=== PATIENT | female | born 1950 | race Caucasian/White ===

== ENCOUNTER 2017-12-03 17:35 | Inpatient (IN) | payer OTHER ==
[2017-12-03] MEDS: NITROGLYCERIN 2% 1 GM OINT PKT TD (18:28)
[2017-12-03] MEDS: ASPIRIN 81 MG TAB PO (18:28)
[2017-12-03] MEDS: NITROGLYCERIN (SL) 0.4 MG TAB SL (18:29)
[2017-12-03] MEDS: FUROSEMIDE 40 MG INJ IV (18:29)
[2017-12-03 18:43] LABS: ADD MAN DIFF? NO
[2017-12-03 18:46] LABS: WHITE BLOOD COUNT 5.5 10^3/ul (4.8-10.8)
[2017-12-03 18:46] LABS: BASOPHILS % 0.4 % (0.0-2.0); EOSINOPHILS # 0.2 10^3/ul (0.0-0.5); EOSINOPHILS % 4.2 % (0.0-7.0); HEMATOCRIT 22.4 % (37.0-47.0); HEMOGLOBIN 7.1 g/dl (12.0-16.0); LYMPHOCYTES # 1.2 10^3/ul (0.8-2.9); LYMPHOCYTES % 21.4 % (15.0-51.0); MEAN CORPUSCULAR HGB CONC 31.7 g/dl (32.0-37.0); MEAN CORPUSCULAR VOLUME 88.2 fl (82.0-101.0); MEAN PLATELET VOLUME 9.6 fl (7.4-10.4); MONOCYTE # 0.4 10^3/ul (0.3-0.9); MONOCYTES % 7.9 % (0.0-11.0); NEUTROPHIL # 3.6 10^3/ul (1.6-7.5); NEUTROPHILS % 65.4 % (39.0-77.0); PLATELET COUNT 315 10^3/UL (140-415); RED BLOOD COUNT 2.54 10^6/ul (4.20-5.40); RED CELL DISTRIBUTION WIDTH 15.1 % (11.5-14.5)
[2017-12-03 19:05] LABS: ANION GAP 16 (8-16); BLOOD UREA NITROGEN 36 mg/dl (7-20); CALCIUM 9.3 mg/dl (8.4-10.2); CARBON DIOXIDE 21 mmol/L (21-31); CHLORIDE 110 mmol/L (97-110); CREATININE 1.73 mg/dl (0.44-1.00); GLUCOSE 154 mg/dl (70-220); SODIUM 142 mmol/L (135-144)
[2017-12-03 19:08] LABS: POTASSIUM 5.2 mmol/L (3.5-5.1)
[2017-12-03] MEDS: SOD CHLORIDE 0.9% 250 ML IV (19:14)
[2017-12-03 19:22] LABS: TROPONIN-I < 0.012 ng/ml (0.00-0.12)
[2017-12-03] MEDS ORDERED: ONDANSETRON 4 MG INJ IV (20:00)
[2017-12-03 20:50] LABS: D-DIMER 3619.37 ng/ml (<460)
[2017-12-03 21:09] LABS: IMMEDIATE SPIN CROSSMATCH 1 2
[2017-12-03] MEDS ORDERED: GLUCAGON 1 MG INJ IM (21:30)
[2017-12-03] MEDS ORDERED: GLUCOSE GEL 15 GRAM TUBE PO ×2 (21:30)
[2017-12-03] MEDS ORDERED: NITROGLYCERIN (SL) 0.4 MG TAB SL (21:30)
[2017-12-03] MEDS ORDERED: DEXTROSE 50% 50 ML SYRINGE IV ×2 (21:30)
[2017-12-03] MEDS ORDERED: GLUCOSE GEL 15 GRAM TUBE BUCCAL (21:30)
[2017-12-03] MEDS: INSULIN ASPART [NOVOLOG] 3 ML PEN SC (21:30)
[2017-12-03] MEDS ORDERED: SOD CHLORIDE 0.9% 500 ML IV (21:30)
[2017-12-03 22:26] LABS: IRON 43 ug/dl (35-150)
[2017-12-03 22:35] LABS: % IRON SATURATION 19 % SAT (22-52); TOTAL IRON BINDING CAPACITY 222 ug/dl (241-421)
[2017-12-03 22:36] LABS: B-TYPE NATRIURETIC PEPTIDE 582 PG/ML (0-125)
[2017-12-04] MEDS: ACETAMINOPHEN 325 MG TAB PO ×2 (00:41→15:46)
[2017-12-04 01:19] LABS: CREATINE KINASE 54 IU/L (23-200)
[2017-12-04 01:32] LABS: CK INDEX 1.1
[2017-12-04 01:33] LABS: TROPONIN-I < 0.012 ng/ml (0.00-0.12)
[2017-12-04] MEDS: ACCU-CHEK XX (02:00)
[2017-12-04] MEDS: FUROSEMIDE 40 MG INJ IV (05:40)
[2017-12-04] MEDS: INSULIN ASPART [NOVOLOG] 3 ML PEN SC ×5 (08:00→21:00)
[2017-12-04 08:31] LABS: ADD MAN DIFF? NO
[2017-12-04 08:42] LABS: WHITE BLOOD COUNT 4.6 10^3/ul (4.8-10.8)
[2017-12-04 08:43] LABS: BASOPHILS % 0.4 % (0.0-2.0); EOSINOPHILS # 0.2 10^3/ul (0.0-0.5); EOSINOPHILS % 4.8 % (0.0-7.0); HEMATOCRIT 26.8 % (37.0-47.0); HEMOGLOBIN 8.8 g/dl (12.0-16.0); LYMPHOCYTES % 21.5 % (15.0-51.0); MEAN CORPUSCULAR HEMOGLOBIN 28.6 pg (29.0-33.0); MEAN CORPUSCULAR HGB CONC 32.8 g/dl (32.0-37.0); MEAN PLATELET VOLUME 9.7 fl (7.4-10.4); MONOCYTE # 0.4 10^3/ul (0.3-0.9); MONOCYTES % 8.6 % (0.0-11.0); NEUTROPHIL # 2.9 10^3/ul (1.6-7.5); NEUTROPHILS % 63.8 % (39.0-77.0); PLATELET COUNT 326 10^3/UL (140-415); RED BLOOD COUNT 3.08 10^6/ul (4.20-5.40); RED CELL DISTRIBUTION WIDTH 14.8 % (11.5-14.5)
[2017-12-04 08:50] LABS: CREATINE KINASE 43 IU/L (23-200)
[2017-12-04 08:54] LABS: ALANINE AMINOTRANSFERASE 22 IU/L (13-69); ALBUMIN 3.7 g/dl (3.3-4.9); ALBUMIN/GLOBULIN RATIO 1.02; ALKALINE PHOSPHATASE 173 IU/L (42-121); ANION GAP 16 (8-16); ASPARTATE AMINO TRANSFERASE 33 IU/L (15-46); BILIRUBIN,INDIRECT 0.1 mg/dl (0-1.1); BILIRUBIN,TOTAL 0.1 mg/dl (0.2-1.3); BLOOD UREA NITROGEN 38 mg/dl (7-20); CALCIUM 9.5 mg/dl (8.4-10.2); CARBON DIOXIDE 21 mmol/L (21-31); CHLORIDE 111 mmol/L (97-110); CHOL/HDL RATIO 1.9 RATIO; CHOLESTEROL 151 mg/dl (100-200); CREATININE 1.89 mg/dl (0.44-1.00); GLUCOSE 136 mg/dl (70-220); HDL CHOLESTEROL 77 mg/dl (35-98); LDL CHOLESTEROL,CALCULATED 60 mg/dl; POTASSIUM 5.2 mmol/L (3.5-5.1); SODIUM 143 mmol/L (135-144); TOTAL PROTEIN 7.3 g/dl (6.1-8.1); TRIGLYCERIDES 72 mg/dl (0-149)
[2017-12-04] MEDS: FERROUS SULFATE (EC) 325 MG TAB PO (09:01)
[2017-12-04 09:02] LABS: CK INDEX 0.8; CK-MB 0.35 ng/ml (0.0-2.4)
[2017-12-04 09:05] LABS: HEMOGLOBIN A1C 6.9 % (0-5.9)
[2017-12-04 09:06] LABS: TROPONIN-I < 0.012 ng/ml (0.00-0.12)
[2017-12-04 09:53] LABS: CREATINE KINASE 46 IU/L (23-200)
[2017-12-04 10:05] LABS: CK INDEX 0.7; CK-MB 0.33 ng/ml (0.0-2.4)
[2017-12-04 10:10] LABS: TROPONIN-I < 0.012 ng/ml (0.00-0.12)
[2017-12-04] MEDS: AMLODIPINE 5 MG TAB PO (11:00)
[2017-12-04] MEDS ORDERED: IODIXANOL LOCM 100 ML BTL (12:28)
[2017-12-04] MEDS ORDERED: LIDOCAINE 1% (MDV) 20 ML INJ (12:28)
[2017-12-04] MEDS ORDERED: IODIXANOL LOCM 50 ML BTL (12:28)
[2017-12-04] MEDS ORDERED: HEPARIN 1000 UNITS/NS (A-LINE) 1,000 ML (12:28)
[2017-12-04 14:44] LABS: CREATINE KINASE 44 IU/L (23-200)
[2017-12-04 14:56] LABS: CK INDEX 0.6; CK-MB 0.28 ng/ml (0.0-2.4)
[2017-12-04 15:08] LABS: TROPONIN-I < 0.012 ng/ml (0.00-0.12)
[2017-12-04 15:50] LABS: ADD UMIC YES; UR ASCORBIC ACID NEGATIVE (NEGATIVE); UR BILIRUBIN (Dip) NEGATIVE (NEGATIVE); UR BLOOD (Dip) NEGATIVE (NEGATIVE); UR CLARITY CLEAR (CLEAR); UR COLOR STRAW (YELLOW); UR GLUCOSE (Dip) NEGATIVE (NEGATIVE); UR KETONES (Dip) NEGATIVE (NEGATIVE); UR LEUKOCYTE ESTERASE (Dip) TRACE Leu/ul (NEGATIVE); UR NITRITE (Dip) NEGATIVE (NEGATIVE); UR RBC 1 /HPF (0-5); UR SPECIFIC GRAVITY (Dip) 1.009 (1.003-1.030); UR TOTAL PROTEIN (Dip) NEGATIVE (NEGATIVE); UR UROBILINOGEN (Dip) NEGATIVE (NEGATIVE); UR WBC 3 /HPF (0-5)
[2017-12-04] MEDS: PANTOPRAZOLE (EC) 40 MG TAB PO (17:38)
[2017-12-04] MEDS: HEPARIN 5,000 UNIT/0.5 ML VIAL SC (21:35)
[2017-12-05] MEDS: ACCU-CHEK XX (02:00)
[2017-12-05] MEDS: PANTOPRAZOLE (EC) 40 MG TAB PO ×2 (05:51→17:17)
[2017-12-05] MEDS: HEPARIN 5,000 UNIT/0.5 ML VIAL SC ×2 (05:59→13:41)
[2017-12-05] MEDS: ACETAMINOPHEN 325 MG TAB PO ×2 (07:45→15:26)
[2017-12-05] MEDS: FERROUS SULFATE (EC) 325 MG TAB PO (08:03)
[2017-12-05] MEDS: AMLODIPINE 5 MG TAB PO (08:05)
[2017-12-05] MEDS: INSULIN ASPART [NOVOLOG] 3 ML PEN SC ×4 (08:34→21:52)
[2017-12-05 11:54] LABS: ADD MAN DIFF? NO
[2017-12-05 12:05] LABS: BASOPHILS % 0.4 % (0.0-2.0); EOSINOPHILS # 0.2 10^3/ul (0.0-0.5); EOSINOPHILS % 4.1 % (0.0-7.0); HEMATOCRIT 27.5 % (37.0-47.0); HEMOGLOBIN 9.2 g/dl (12.0-16.0); LYMPHOCYTES # 1.1 10^3/ul (0.8-2.9); LYMPHOCYTES % 21.1 % (15.0-51.0); MEAN CORPUSCULAR HEMOGLOBIN 29.2 pg (29.0-33.0); MEAN CORPUSCULAR HGB CONC 33.5 g/dl (32.0-37.0); MEAN CORPUSCULAR VOLUME 87.3 fl (82.0-101.0); MEAN PLATELET VOLUME 9.6 fl (7.4-10.4); MONOCYTE # 0.4 10^3/ul (0.3-0.9); MONOCYTES % 8.1 % (0.0-11.0); NEUTROPHIL # 3.6 10^3/ul (1.6-7.5); NEUTROPHILS % 65.9 % (39.0-77.0); PLATELET COUNT 308 10^3/UL (140-415); RED BLOOD COUNT 3.15 10^6/ul (4.20-5.40); RED CELL DISTRIBUTION WIDTH 14.9 % (11.5-14.5)
[2017-12-05 12:05] LABS: WHITE BLOOD COUNT 5.4 10^3/ul (4.8-10.8)
[2017-12-05 12:16] LABS: INR 0.97
[2017-12-05 12:18] LABS: ALANINE AMINOTRANSFERASE 21 IU/L (13-69); ALBUMIN/GLOBULIN RATIO 1.21; ALKALINE PHOSPHATASE 177 IU/L (42-121); ANION GAP 20 (8-16); ASPARTATE AMINO TRANSFERASE 31 IU/L (15-46); BLOOD UREA NITROGEN 45 mg/dl (7-20); CALCIUM 9.4 mg/dl (8.4-10.2); CARBON DIOXIDE 20 mmol/L (21-31); CHLORIDE 108 mmol/L (97-110); CREATININE 2.01 mg/dl (0.44-1.00); GLUCOSE 185 mg/dl (70-220); POTASSIUM 4.9 mmol/L (3.5-5.1); SODIUM 143 mmol/L (135-144); TOTAL PROTEIN 7.3 g/dl (6.1-8.1)
[2017-12-05] MEDS: FUROSEMIDE 20 MG INJ IV (12:22)
[2017-12-05] MEDS ORDERED: HEPARIN 1000 UNITS/ML 10 ML INJ IV ×2 (16:30)
[2017-12-05 17:36] LABS: ADD MAN DIFF? NO
[2017-12-05 17:38] LABS: WHITE BLOOD COUNT 4.8 10^3/ul (4.8-10.8)
[2017-12-05 17:38] LABS: BASOPHILS % 0.4 % (0.0-2.0); EOSINOPHILS # 0.2 10^3/ul (0.0-0.5); EOSINOPHILS % 4.8 % (0.0-7.0); HEMATOCRIT 27.6 % (37.0-47.0); HEMOGLOBIN 9.2 g/dl (12.0-16.0); LYMPHOCYTES # 1.2 10^3/ul (0.8-2.9); MEAN CORPUSCULAR HEMOGLOBIN 29.1 pg (29.0-33.0); MEAN CORPUSCULAR HGB CONC 33.3 g/dl (32.0-37.0); MEAN CORPUSCULAR VOLUME 87.3 fl (82.0-101.0); MEAN PLATELET VOLUME 9.2 fl (7.4-10.4); MONOCYTE # 0.3 10^3/ul (0.3-0.9); MONOCYTES % 6.3 % (0.0-11.0); NEUTROPHILS % 63.3 % (39.0-77.0); PLATELET COUNT 327 10^3/UL (140-415); RED BLOOD COUNT 3.16 10^6/ul (4.20-5.40); RED CELL DISTRIBUTION WIDTH 14.7 % (11.5-14.5)
[2017-12-05] MEDS: ONDANSETRON 4 MG INJ IV (18:02)
[2017-12-05] MEDS: HEPARIN 1000 UNITS/ML 10 ML INJ IV (18:03)
[2017-12-05 18:08] LABS: INR 0.95; PROTIME 12.8 Sec (11.9-14.9)
[2017-12-05 18:09] LABS: PARTIAL THROMBOPLASTIN TIME 40.1 Sec (25.0-35.0)
[2017-12-05] MEDS: HEPARIN 25000 UNITS/250 ML 250 ML IV (18:09)
[2017-12-05] MEDS: INSULIN GLARGINE [LANtus] 3 ML PEN SC (21:51)
[2017-12-05 22:18] LABS: ADD MAN DIFF? NO
[2017-12-05 22:19] LABS: WHITE BLOOD COUNT 5.2 10^3/ul (4.8-10.8)
[2017-12-05 22:19] LABS: BASOPHILS % 0.4 % (0.0-2.0); EOSINOPHILS # 0.2 10^3/ul (0.0-0.5); HEMATOCRIT 26.9 % (37.0-47.0); HEMOGLOBIN 9.1 g/dl (12.0-16.0); LYMPHOCYTES # 1.2 10^3/ul (0.8-2.9); LYMPHOCYTES % 22.9 % (15.0-51.0); MEAN CORPUSCULAR HEMOGLOBIN 29.3 pg (29.0-33.0); MEAN CORPUSCULAR HGB CONC 33.8 g/dl (32.0-37.0); MEAN CORPUSCULAR VOLUME 86.5 fl (82.0-101.0); MEAN PLATELET VOLUME 9.2 fl (7.4-10.4); MONOCYTE # 0.4 10^3/ul (0.3-0.9); MONOCYTES % 8.3 % (0.0-11.0); NEUTROPHIL # 3.3 10^3/ul (1.6-7.5); PLATELET COUNT 304 10^3/UL (140-415); RED BLOOD COUNT 3.11 10^6/ul (4.20-5.40); RED CELL DISTRIBUTION WIDTH 14.6 % (11.5-14.5)
[2017-12-06] MEDS: ACETAMINOPHEN 325 MG TAB PO ×2 (00:53→23:51)
[2017-12-06] MEDS: HEPARIN 1000 UNITS/ML 10 ML INJ IV ×2 (02:04→16:44)
[2017-12-06] MEDS: HEPARIN 25000 UNITS/250 ML 250 ML IV ×3 (02:08→16:46)
[2017-12-06] MEDS: ACCU-CHEK XX (02:14)
[2017-12-06] MEDS: PANTOPRAZOLE (EC) 40 MG TAB PO ×2 (05:52→17:15)
[2017-12-06 07:38] LABS: ADD MAN DIFF? NO
[2017-12-06 07:43] LABS: WHITE BLOOD COUNT 4.4 10^3/ul (4.8-10.8)
[2017-12-06 07:43] LABS: BASOPHILS % 0.7 % (0.0-2.0); EOSINOPHILS # 0.3 10^3/ul (0.0-0.5); EOSINOPHILS % 5.7 % (0.0-7.0); HEMATOCRIT 26.1 % (37.0-47.0); HEMOGLOBIN 8.8 g/dl (12.0-16.0); LYMPHOCYTES # 1.2 10^3/ul (0.8-2.9); LYMPHOCYTES % 26.6 % (15.0-51.0); MEAN CORPUSCULAR HEMOGLOBIN 29.2 pg (29.0-33.0); MEAN CORPUSCULAR HGB CONC 33.7 g/dl (32.0-37.0); MEAN CORPUSCULAR VOLUME 86.7 fl (82.0-101.0); MEAN PLATELET VOLUME 9.7 fl (7.4-10.4); MONOCYTE # 0.5 10^3/ul (0.3-0.9); MONOCYTES % 10.2 % (0.0-11.0); NEUTROPHIL # 2.5 10^3/ul (1.6-7.5); NEUTROPHILS % 56.1 % (39.0-77.0); PLATELET COUNT 291 10^3/UL (140-415); RED BLOOD COUNT 3.01 10^6/ul (4.20-5.40)
[2017-12-06] MEDS: INSULIN ASPART [NOVOLOG] 3 ML PEN SC ×4 (08:00→21:19)
[2017-12-06] MEDS: FERROUS SULFATE (EC) 325 MG TAB PO (08:11)
[2017-12-06] MEDS: AMLODIPINE 5 MG TAB PO (08:12)
[2017-12-06] MEDS: FUROSEMIDE 20 MG INJ IV (08:12)
[2017-12-06 08:13] LABS: ANION GAP 16 (8-16); BLOOD UREA NITROGEN 46 mg/dl (7-20); CALCIUM 9.4 mg/dl (8.4-10.2); CARBON DIOXIDE 21 mmol/L (21-31); CHLORIDE 111 mmol/L (97-110); CREATININE 1.98 mg/dl (0.44-1.00); GLUCOSE 116 mg/dl (70-220); POTASSIUM 4.7 mmol/L (3.5-5.1); SODIUM 143 mmol/L (135-144)
[2017-12-06 08:13] LABS: PARTIAL THROMBOPLASTIN TIME 70.6 Sec (25.0-35.0)
[2017-12-06] MEDS ORDERED: INFLUENZA VIRUS VACCINE 0.5 ML (DISPENSING) IM* (09:00)
[2017-12-06 14:07] LABS: PARTIAL THROMBOPLASTIN TIME 36.5 Sec (25.0-35.0)
[2017-12-06 16:29] LABS: PARTIAL THROMBOPLASTIN TIME 39.8 Sec (25.0-35.0)
[2017-12-06] MEDS: INSULIN GLARGINE [LANtus] 3 ML PEN SC (21:20)
[2017-12-06 23:07] LABS: PARTIAL THROMBOPLASTIN TIME 102.3 Sec (25.0-35.0)
[2017-12-07 00:34] LABS: PARTIAL THROMBOPLASTIN TIME 72.6 Sec (25.0-35.0)
[2017-12-07] MEDS: ACCU-CHEK XX (02:11)
[2017-12-07] MEDS: PANTOPRAZOLE (EC) 40 MG TAB PO ×2 (05:45→17:07)
[2017-12-07 07:58] LABS: ADD MAN DIFF? NO
[2017-12-07] MEDS: INSULIN ASPART [NOVOLOG] 3 ML PEN SC ×4 (08:00→20:54)
[2017-12-07 08:02] LABS: BASOPHILS % 0.6 % (0.0-2.0); EOSINOPHILS # 0.3 10^3/ul (0.0-0.5); EOSINOPHILS % 5.5 % (0.0-7.0); HEMATOCRIT 25.6 % (37.0-47.0); HEMOGLOBIN 8.5 g/dl (12.0-16.0); LYMPHOCYTES # 1.1 10^3/ul (0.8-2.9); LYMPHOCYTES % 23.2 % (15.0-51.0); MEAN CORPUSCULAR HEMOGLOBIN 29.1 pg (29.0-33.0); MEAN CORPUSCULAR HGB CONC 33.2 g/dl (32.0-37.0); MEAN CORPUSCULAR VOLUME 87.7 fl (82.0-101.0); MEAN PLATELET VOLUME 9.3 fl (7.4-10.4); MONOCYTE # 0.4 10^3/ul (0.3-0.9); MONOCYTES % 8.1 % (0.0-11.0); NEUTROPHIL # 3.1 10^3/ul (1.6-7.5); NEUTROPHILS % 62.2 % (39.0-77.0); PLATELET COUNT 314 10^3/UL (140-415); RED BLOOD COUNT 2.92 10^6/ul (4.20-5.40); RED CELL DISTRIBUTION WIDTH 14.7 % (11.5-14.5)
[2017-12-07 08:02] LABS: WHITE BLOOD COUNT 4.9 10^3/ul (4.8-10.8)
[2017-12-07 08:23] LABS: PARTIAL THROMBOPLASTIN TIME 49.4 Sec (25.0-35.0)
[2017-12-07 08:25] LABS: ANION GAP 19 (8-16); BLOOD UREA NITROGEN 43 mg/dl (7-20); CALCIUM 9.4 mg/dl (8.4-10.2); CARBON DIOXIDE 21 mmol/L (21-31); CHLORIDE 109 mmol/L (97-110); CREATININE 2.15 mg/dl (0.44-1.00); GLUCOSE 97 mg/dl (70-220); MAGNESIUM 1.8 mg/dl (1.7-2.5); PHOSPHORUS 5.4 mg/dl (2.5-4.9); POTASSIUM 4.6 mmol/L (3.5-5.1); SODIUM 144 mmol/L (135-144)
[2017-12-07] MEDS: FERROUS SULFATE (EC) 325 MG TAB PO (08:38)
[2017-12-07] MEDS: AMLODIPINE 5 MG TAB PO (08:39)
[2017-12-07 08:54] LABS: CARCINOEMBRYONIC ANTIGEN 19.5 ng/ml (0.0-5.0)
[2017-12-07] MEDS: HEPARIN 1000 UNITS/ML 10 ML INJ IV (09:40)
[2017-12-07] MEDS: HEPARIN 25000 UNITS/250 ML 250 ML IV (09:42)
[2017-12-07] MEDS: hydrALAzine 20 MG INJ IV (16:30)
[2017-12-07] MEDS: BISACODYL (EC) 5 MG TAB PO (17:50)
[2017-12-07] MEDS: MAGNESIUM CITRATE 300 ML BTL PO (18:44)
[2017-12-07] MEDS: POLYETHYLENE GLYCOL 3350 119 GM POWDER PO (18:45)
[2017-12-07 19:17] LABS: PARTIAL THROMBOPLASTIN TIME 68.1 Sec (25.0-35.0)
[2017-12-07] MEDS: ONDANSETRON 4 MG INJ IV (19:18)
[2017-12-07] MEDS: ACETAMINOPHEN 325 MG TAB PO (19:20)
[2017-12-07] MEDS: INSULIN GLARGINE [LANtus] 3 ML PEN SC (20:50)
[2017-12-08] MEDS: ACCU-CHEK XX (01:38)
[2017-12-08] MEDS: ACETAMINOPHEN 325 MG TAB PO ×2 (01:46→21:00)
[2017-12-08 04:32] LABS: PROTEIN, TOTAL 6.4 g/dL (6.1-8.1)
[2017-12-08] MEDS: PANTOPRAZOLE (EC) 40 MG TAB PO ×2 (05:17→08:14)
[2017-12-08] MEDS: POLYETHYLENE GLYCOL 3350 119 GM POWDER PO (05:48)
[2017-12-08] MEDS: INSULIN ASPART [NOVOLOG] 3 ML PEN SC ×4 (08:00→20:54)
[2017-12-08] MEDS: AMLODIPINE 5 MG TAB PO ×2 (08:14→21:03)
[2017-12-08] MEDS: FERROUS SULFATE (EC) 325 MG TAB PO (08:14)
[2017-12-08] MEDS: BISACODYL (EC) 5 MG TAB PO (08:15)
[2017-12-08 10:41] LABS: ADD MAN DIFF? NO
[2017-12-08 10:42] LABS: RETICULOCYTE RBC 3.17; WHITE BLOOD COUNT 5.5 10^3/ul (4.8-10.8)
[2017-12-08 10:42] LABS: BASOPHILS % 0.4 % (0.0-2.0); EOSINOPHILS # 0.2 10^3/ul (0.0-0.5); EOSINOPHILS % 3.4 % (0.0-7.0); HEMATOCRIT 27.2 % (37.0-47.0); HEMOGLOBIN 8.9 g/dl (12.0-16.0); MEAN CORPUSCULAR HEMOGLOBIN 28.4 pg (29.0-33.0); MEAN CORPUSCULAR HGB CONC 32.7 g/dl (32.0-37.0); MEAN CORPUSCULAR VOLUME 86.9 fl (82.0-101.0); MEAN PLATELET VOLUME 9.4 fl (7.4-10.4); MONOCYTE # 0.3 10^3/ul (0.3-0.9); MONOCYTES % 5.8 % (0.0-11.0); PLATELET COUNT 335 10^3/UL (140-415); RED BLOOD COUNT 3.13 10^6/ul (4.20-5.40); RED CELL DISTRIBUTION WIDTH 15.1 % (11.5-14.5); RETICULOCYTE COUNT # 0.043 X10^6 (0.020-0.110); RETICULOCYTE COUNT % 1.4 % (0.5-1.5)
[2017-12-08 11:06] LABS: ANION GAP 20 (8-16); BLOOD UREA NITROGEN 44 mg/dl (7-20); CALCIUM 9.6 mg/dl (8.4-10.2); CARBON DIOXIDE 19 mmol/L (21-31); CHLORIDE 109 mmol/L (97-110); CREATININE 2.15 mg/dl (0.44-1.00); GLUCOSE 89 mg/dl (70-220); MAGNESIUM 2.1 mg/dl (1.7-2.5); PHOSPHORUS 5.3 mg/dl (2.5-4.9); POTASSIUM 5.1 mmol/L (3.5-5.1); SODIUM 143 mmol/L (135-144)
[2017-12-08 12:12] LABS: CA27.29 152 U/mL (<38)
[2017-12-08 15:32] LABS: FOLATE 10.7 ng/ml (2.8-20.0)
[2017-12-08 15:57] LABS: ALBUMIN 3.1 g/dL (3.8-4.8); ALPHA-1-GLOBULINS 0.4 g/dL (0.2-0.3); ALPHA-2-GLOBULINS 1.1 g/dL (0.5-0.9); BETA 2 GLOBULINS 0.4 g/dL (0.2-0.5); BETA GLOBULINS 0.4 g/dL (0.4-0.6); GAMMA GLOBULINS 1.1 g/dL (0.8-1.7)
[2017-12-08] MEDS: MIDAZOLAM 1 MG/ML 2 ML INJ (16:32)
[2017-12-08] MEDS: PROPOFOL 20 ML (16:32)
[2017-12-08] MEDS: FENTAnyl 50 MCG/ML VIAL (16:32)
[2017-12-08] MEDS: SUCCINYLCHOLINE CHLORIDE 100 MG/5 ML SYG IV (16:47)
[2017-12-08] MEDS ORDERED: hydrALAzine 20 MG INJ IV (17:30)
[2017-12-08] MEDS ORDERED: LABETALOL HCL 20MG INJ IV (17:30)
[2017-12-08] MEDS ORDERED: ONDANSETRON 4 MG INJ IV (17:30)
[2017-12-08] MEDS: INSULIN GLARGINE [LANtus] 3 ML PEN SC (20:55)
[2017-12-09] MEDS: ACCU-CHEK XX (02:26)
[2017-12-09] MEDS: PANTOPRAZOLE (EC) 40 MG TAB PO ×2 (05:34→18:46)
[2017-12-09] MEDS: INSULIN ASPART [NOVOLOG] 3 ML PEN SC ×4 (08:00→20:57)
[2017-12-09] MEDS: FERROUS SULFATE (EC) 325 MG TAB PO (08:33)
[2017-12-09] MEDS: AMLODIPINE 5 MG TAB PO ×2 (08:34→20:59)
[2017-12-09] MEDS: LETROZOLE 2.5 MG TAB PO (09:00)
[2017-12-09 09:19] LABS: ANION GAP 19 (8-16); BLOOD UREA NITROGEN 41 mg/dl (7-20); CALCIUM 9.7 mg/dl (8.4-10.2); CARBON DIOXIDE 22 mmol/L (21-31); CHLORIDE 110 mmol/L (97-110); CREATININE 2.04 mg/dl (0.44-1.00); GLUCOSE 86 mg/dl (70-220); MAGNESIUM 2.4 mg/dl (1.7-2.5); PHOSPHORUS 4.8 mg/dl (2.5-4.9); POTASSIUM 4.7 mmol/L (3.5-5.1); SODIUM 146 mmol/L (135-144)
[2017-12-09] MEDS: morphine 2 MG INJ IV (10:20)
[2017-12-09] MEDS: ACETAMINOPHEN 325 MG TAB PO (10:24)
[2017-12-09] MEDS: INSULIN GLARGINE [LANtus] 3 ML PEN SC (21:11)
[2017-12-10] MEDS: ACCU-CHEK XX (02:00)
[2017-12-10] MEDS: PANTOPRAZOLE (EC) 40 MG TAB PO ×2 (05:04→17:06)
[2017-12-10] MEDS: NACL 0.9% 3 ML SYG IV (05:05)
[2017-12-10] MEDS: ACETAMINOPHEN 325 MG TAB PO (06:36)
[2017-12-10] MEDS: INSULIN ASPART [NOVOLOG] 3 ML PEN SC ×4 (08:00→21:23)
[2017-12-10] MEDS: FERROUS SULFATE (EC) 325 MG TAB PO (08:25)
[2017-12-10] MEDS: AMLODIPINE 5 MG TAB PO ×2 (08:25→21:16)
[2017-12-10 09:06] LABS: ADD MAN DIFF? NO
[2017-12-10 09:15] LABS: BASOPHILS % 0.3 % (0.0-2.0); EOSINOPHILS # 0.2 10^3/ul (0.0-0.5); EOSINOPHILS % 3.2 % (0.0-7.0); HEMATOCRIT 26.6 % (37.0-47.0); HEMOGLOBIN 8.6 g/dl (12.0-16.0); LYMPHOCYTES % 17.3 % (15.0-51.0); MEAN CORPUSCULAR HEMOGLOBIN 28.5 pg (29.0-33.0); MEAN CORPUSCULAR HGB CONC 32.3 g/dl (32.0-37.0); MEAN CORPUSCULAR VOLUME 88.1 fl (82.0-101.0); MEAN PLATELET VOLUME 9.6 fl (7.4-10.4); MONOCYTE # 0.5 10^3/ul (0.3-0.9); MONOCYTES % 9.1 % (0.0-11.0); NEUTROPHIL # 4.1 10^3/ul (1.6-7.5); NEUTROPHILS % 69.8 % (39.0-77.0); PLATELET COUNT 337 10^3/UL (140-415); RED BLOOD COUNT 3.02 10^6/ul (4.20-5.40); RED CELL DISTRIBUTION WIDTH 15.3 % (11.5-14.5)
[2017-12-10 09:15] LABS: WHITE BLOOD COUNT 5.9 10^3/ul (4.8-10.8)
[2017-12-10 09:35] LABS: ALANINE AMINOTRANSFERASE 48 IU/L (13-69); ALBUMIN/GLOBULIN RATIO 1.17; ALKALINE PHOSPHATASE 170 IU/L (42-121); ANION GAP 18 (8-16); ASPARTATE AMINO TRANSFERASE 61 IU/L (15-46); BLOOD UREA NITROGEN 38 mg/dl (7-20); CALCIUM 9.8 mg/dl (8.4-10.2); CARBON DIOXIDE 23 mmol/L (21-31); CHLORIDE 108 mmol/L (97-110); CREATININE 1.98 mg/dl (0.44-1.00); GLUCOSE 65 mg/dl (70-220); POTASSIUM 4.5 mmol/L (3.5-5.1); SODIUM 144 mmol/L (135-144); TOTAL PROTEIN 7.4 g/dl (6.1-8.1)
[2017-12-10] MEDS: LETROZOLE 2.5 MG TAB PO (10:10)
[2017-12-10 10:44] LABS: PHOSPHORUS 4.8 mg/dl (2.5-4.9)
[2017-12-10 10:44] LABS: MAGNESIUM 2.4 mg/dl (1.7-2.5)
[2017-12-10] MEDS: INSULIN GLARGINE [LANtus] 3 ML PEN SC (21:24)
[2017-12-11] MEDS: ACCU-CHEK XX (02:00)
[2017-12-11] MEDS: PANTOPRAZOLE (EC) 40 MG TAB PO ×2 (05:10→16:57)
[2017-12-11] MEDS: INSULIN ASPART [NOVOLOG] 3 ML PEN SC ×4 (08:00→20:57)
[2017-12-11] MEDS: LETROZOLE 2.5 MG TAB PO (08:47)
[2017-12-11] MEDS: AMLODIPINE 5 MG TAB PO ×2 (08:47→21:02)
[2017-12-11] MEDS: FERROUS SULFATE (EC) 325 MG TAB PO (08:47)
[2017-12-11 08:57] LABS: ADD MAN DIFF? NO
[2017-12-11 08:59] LABS: BASOPHILS % 0.4 % (0.0-2.0); EOSINOPHILS # 0.3 10^3/ul (0.0-0.5); EOSINOPHILS % 4.5 % (0.0-7.0); HEMATOCRIT 26.7 % (37.0-47.0); HEMOGLOBIN 8.6 g/dl (12.0-16.0); LYMPHOCYTES # 1.2 10^3/ul (0.8-2.9); MEAN CORPUSCULAR HEMOGLOBIN 28.4 pg (29.0-33.0); MEAN CORPUSCULAR HGB CONC 32.2 g/dl (32.0-37.0); MEAN CORPUSCULAR VOLUME 88.1 fl (82.0-101.0); MEAN PLATELET VOLUME 9.8 fl (7.4-10.4); MONOCYTE # 0.5 10^3/ul (0.3-0.9); MONOCYTES % 8.7 % (0.0-11.0); NEUTROPHIL # 3.6 10^3/ul (1.6-7.5); NEUTROPHILS % 64.7 % (39.0-77.0); PLATELET COUNT 319 10^3/UL (140-415); RED BLOOD COUNT 3.03 10^6/ul (4.20-5.40); RED CELL DISTRIBUTION WIDTH 15.2 % (11.5-14.5)
[2017-12-11 08:59] LABS: WHITE BLOOD COUNT 5.5 10^3/ul (4.8-10.8)
[2017-12-11] MEDS: ACETAMINOPHEN 325 MG TAB PO (08:59)
[2017-12-11] MEDS: FUROSEMIDE 20 MG INJ IV (09:00)
[2017-12-11 09:31] LABS: ANION GAP 15 (8-16); BLOOD UREA NITROGEN 33 mg/dl (7-20); CALCIUM 9.6 mg/dl (8.4-10.2); CARBON DIOXIDE 22 mmol/L (21-31); CHLORIDE 111 mmol/L (97-110); CREATININE 1.86 mg/dl (0.44-1.00); GLUCOSE 75 mg/dl (70-220); MAGNESIUM 2.2 mg/dl (1.7-2.5); PHOSPHORUS 4.3 mg/dl (2.5-4.9); POTASSIUM 4.5 mmol/L (3.5-5.1); SODIUM 143 mmol/L (135-144)
[2017-12-11] MEDS ORDERED: AMLODIPINE 5 MG TAB PO ×2 (11:00→21:00)
[2017-12-11] MEDS ORDERED: HEPARIN 1000 UNITS/ML 10 ML INJ IV (11:00)
[2017-12-11 12:22] LABS: INR 0.92; PROTIME 12.4 Sec (11.9-14.9)
[2017-12-11] MEDS: HEPARIN 1000 UNITS/ML 10 ML INJ IV (13:04)
[2017-12-11] MEDS: HEPARIN 25000 UNITS/250 ML 250 ML IV (13:20)
[2017-12-11] MEDS: INSULIN GLARGINE [LANtus] 3 ML PEN SC (21:03)
[2017-12-11 22:33] LABS: PARTIAL THROMBOPLASTIN TIME 135.6 Sec (25.0-35.0)
[2017-12-11] MEDS ORDERED: ZOLPIDEM 5 MG TAB PO (23:50)
[2017-12-12] MEDS: ACCU-CHEK XX (02:00)
[2017-12-12] MEDS: PANTOPRAZOLE (EC) 40 MG TAB PO ×2 (06:29→17:13)
[2017-12-12] MEDS: INSULIN ASPART [NOVOLOG] 3 ML PEN SC ×4 (08:00→20:48)
[2017-12-12] MEDS: FUROSEMIDE 20 MG INJ IV (08:54)
[2017-12-12] MEDS: FERROUS SULFATE (EC) 325 MG TAB PO (08:54)
[2017-12-12] MEDS: BISACODYL (EC) 5 MG TAB PO (08:56)
[2017-12-12] MEDS: AMLODIPINE 5 MG TAB PO ×2 (08:57→20:48)
[2017-12-12] MEDS: LETROZOLE 2.5 MG TAB PO (09:02)
[2017-12-12 09:41] LABS: ANION GAP 19 (8-16); BLOOD UREA NITROGEN 34 mg/dl (7-20); CALCIUM 9.6 mg/dl (8.4-10.2); CARBON DIOXIDE 21 mmol/L (21-31); CHLORIDE 108 mmol/L (97-110); CREATININE 1.97 mg/dl (0.44-1.00); GLUCOSE 89 mg/dl (70-220); MAGNESIUM 1.9 mg/dl (1.7-2.5); POTASSIUM 4.2 mmol/L (3.5-5.1); SODIUM 144 mmol/L (135-144)
[2017-12-12 09:49] LABS: PARTIAL THROMBOPLASTIN TIME 50.7 Sec (25.0-35.0)
[2017-12-12] MEDS ORDERED: HEPARIN 1000 UNITS/ML 10 ML INJ IV ×2 (10:30→18:00)
[2017-12-12] MEDS: HEPARIN 1000 UNITS/ML 10 ML INJ IV (10:39)
[2017-12-12] MEDS: MAGNESIUM CITRATE 300 ML BTL PO (17:13)
[2017-12-12] MEDS: POLYETHYLENE GLYCOL 3350 119 GM POWDER PO (17:25)
[2017-12-12] MEDS: HEPARIN 25000 UNITS/250 ML 250 ML IV (17:25)
[2017-12-12 17:26] LABS: PARTIAL THROMBOPLASTIN TIME 62.4 Sec (25.0-35.0)
[2017-12-12] MEDS: INSULIN GLARGINE [LANtus] 3 ML PEN SC (20:45)
[2017-12-12 23:10] LABS: PARTIAL THROMBOPLASTIN TIME > 180.0 Sec (25.0-35.0)
[2017-12-13] MEDS: ACCU-CHEK XX (02:00)
[2017-12-13 02:20] LABS: PARTIAL THROMBOPLASTIN TIME 38.8 Sec (25.0-35.0)
[2017-12-13 03:58] LABS: ADD MAN DIFF? NO
[2017-12-13 04:05] LABS: WHITE BLOOD COUNT 7.9 10^3/ul (4.8-10.8)
[2017-12-13 04:05] LABS: BASOPHILS % 0.1 % (0.0-2.0); EOSINOPHILS # 0.2 10^3/ul (0.0-0.5); EOSINOPHILS % 2.8 % (0.0-7.0); HEMOGLOBIN 9.6 g/dl (12.0-16.0); LYMPHOCYTES # 1.2 10^3/ul (0.8-2.9); LYMPHOCYTES % 15.7 % (15.0-51.0); MEAN CORPUSCULAR HGB CONC 33.1 g/dl (32.0-37.0); MEAN CORPUSCULAR VOLUME 87.6 fl (82.0-101.0); MEAN PLATELET VOLUME 9.5 fl (7.4-10.4); MONOCYTE # 0.7 10^3/ul (0.3-0.9); MONOCYTES % 8.7 % (0.0-11.0); NEUTROPHIL # 5.7 10^3/ul (1.6-7.5); NEUTROPHILS % 72.3 % (39.0-77.0); PLATELET COUNT 356 10^3/UL (140-415); RED BLOOD COUNT 3.31 10^6/ul (4.20-5.40); RED CELL DISTRIBUTION WIDTH 14.8 % (11.5-14.5)
[2017-12-13 04:26] LABS: PARTIAL THROMBOPLASTIN TIME 34.3 Sec (25.0-35.0)
[2017-12-13 04:34] LABS: ANION GAP 19 (8-16); BLOOD UREA NITROGEN 30 mg/dl (7-20); CALCIUM 9.3 mg/dl (8.4-10.2); CARBON DIOXIDE 20 mmol/L (21-31); CHLORIDE 110 mmol/L (97-110); CREATININE 2.02 mg/dl (0.44-1.00); GLUCOSE 81 mg/dl (70-220); MAGNESIUM 1.8 mg/dl (1.7-2.5); PHOSPHORUS 4.9 mg/dl (2.5-4.9); POTASSIUM 3.8 mmol/L (3.5-5.1); SODIUM 145 mmol/L (135-144)
[2017-12-13] MEDS: PANTOPRAZOLE (EC) 40 MG TAB PO ×2 (05:56→17:35)
[2017-12-13] MEDS ORDERED: POLYETHYLENE GLYCOL 3350 119 GM POWDER PO (06:00)
[2017-12-13] MEDS ORDERED: MEPERIDINE 25 MG INJ IV (06:30)
[2017-12-13] MEDS ORDERED: HYDROmorphONE (0.2 MG/ML) 10ML SYG IV ×3 (06:30)
[2017-12-13] MEDS ORDERED: LABETALOL HCL 20MG INJ IV (06:30)
[2017-12-13] MEDS ORDERED: FENTAnyl 50 MCG/ML VIAL IV ×2 (06:30)
[2017-12-13] MEDS ORDERED: MIDAZOLAM 1 MG/ML 2 ML INJ IV (06:30)
[2017-12-13] MEDS ORDERED: ONDANSETRON 4 MG INJ IV (06:30)
[2017-12-13] MEDS ORDERED: morphine (1 MG/ML) 10ML SYRINGE IV ×3 (06:30)
[2017-12-13] MEDS ORDERED: EPHEDrine SULFATE 50 MG/5 ML SYG IV (06:30)
[2017-12-13] MEDS ORDERED: OXYCODONE/ACETAMINOPHEN (5/325) TAB PO ×2 (06:30)
[2017-12-13] MEDS ORDERED: DIPHENHYDRAMINE 50 MG INJ IV (06:30)
[2017-12-13] MEDS ORDERED: ATROPINE 1 MG/10 ML SYRINGE IV (06:30)
[2017-12-13] MEDS ORDERED: CEFAZOLIN 1 GM INJ (07:00)
[2017-12-13] MEDS ORDERED: SUCCINYLCHOLINE CHLORIDE 100 MG/5 ML SYG IV (07:00)
[2017-12-13] MEDS: INSULIN ASPART [NOVOLOG] 3 ML PEN SC ×5 (08:00→21:58)
[2017-12-13] MEDS ORDERED: BISACODYL (EC) 5 MG TAB PO (08:00)
[2017-12-13] MEDS: FERROUS SULFATE (EC) 325 MG TAB PO (08:19)
[2017-12-13] MEDS: AMLODIPINE 5 MG TAB PO ×2 (09:00→21:46)
[2017-12-13] MEDS: LETROZOLE 2.5 MG TAB PO (09:00)
[2017-12-13] MEDS: FUROSEMIDE 20 MG INJ IV (09:15)
[2017-12-13] MEDS ORDERED: FENTAnyl 50 MCG/ML VIAL (11:03)
[2017-12-13] MEDS ORDERED: LIDOCAINE 2% (SDV) 5 ML INJ (11:03)
[2017-12-13] MEDS ORDERED: GLYCOPYRROLATE 0.4 MG INJ (11:03)
[2017-12-13] MEDS ORDERED: PROPOFOL 20 ML (11:03)
[2017-12-13] MEDS ORDERED: ROCURONIUM 50 MG INJ (11:03)
[2017-12-13] MEDS ORDERED: NEOSTIGMINE 3 MG/3 ML SYRINGE (11:03)
[2017-12-13] MEDS ORDERED: MIDAZOLAM 1 MG/ML 2 ML INJ (11:03)
[2017-12-13] MEDS ORDERED: DEXAMETHASONE 4 MG/ML 1 ML INJ (11:05)
[2017-12-13] MEDS ORDERED: ONDANSETRON 4 MG INJ (11:06)
[2017-12-13 11:38] LABS: PARTIAL THROMBOPLASTIN TIME 33.1 Sec (25.0-35.0)
[2017-12-13] MEDS: IOHEXOL 300MG/ML 30 ML BTL (13:08)
[2017-12-13] MEDS ORDERED: IOHEXOL 300MG/ML 30 ML BTL (13:14)
[2017-12-13] MEDS: hydrALAzine 20 MG INJ IV (14:16)
[2017-12-13] MEDS: INSULIN GLARGINE [LANtus] 3 ML PEN SC (21:44)
[2017-12-14] MEDS: ACCU-CHEK XX ×2 (02:23→21:50)
[2017-12-14] MEDS: PANTOPRAZOLE (EC) 40 MG TAB PO ×2 (06:07→17:36)
[2017-12-14] MEDS: ACETAMINOPHEN 325 MG TAB PO ×2 (06:07→21:23)
[2017-12-14 06:59] LABS: ADD MAN DIFF? NO
[2017-12-14 07:03] LABS: BASOPHILS % 0.2 % (0.0-2.0); EOSINOPHILS # 0.1 10^3/ul (0.0-0.5); EOSINOPHILS % 1.1 % (0.0-7.0); HEMATOCRIT 25.3 % (37.0-47.0); HEMOGLOBIN 8.4 g/dl (12.0-16.0); LYMPHOCYTES # 1.2 10^3/ul (0.8-2.9); LYMPHOCYTES % 21.9 % (15.0-51.0); MEAN CORPUSCULAR HEMOGLOBIN 28.8 pg (29.0-33.0); MEAN CORPUSCULAR HGB CONC 33.2 g/dl (32.0-37.0); MEAN CORPUSCULAR VOLUME 86.6 fl (82.0-101.0); MEAN PLATELET VOLUME 9.7 fl (7.4-10.4); MONOCYTE # 0.9 10^3/ul (0.3-0.9); MONOCYTES % 15.2 % (0.0-11.0); NEUTROPHIL # 3.4 10^3/ul (1.6-7.5); NEUTROPHILS % 60.7 % (39.0-77.0); PLATELET COUNT 322 10^3/UL (140-415); RED BLOOD COUNT 2.92 10^6/ul (4.20-5.40); RED CELL DISTRIBUTION WIDTH 15.1 % (11.5-14.5)
[2017-12-14 07:03] LABS: WHITE BLOOD COUNT 5.6 10^3/ul (4.8-10.8)
[2017-12-14 07:13] LABS: POSITIVE DIFF @See below
[2017-12-14 07:23] LABS: ANION GAP 20 (8-16); BLOOD UREA NITROGEN 27 mg/dl (7-20); CALCIUM 8.7 mg/dl (8.4-10.2); CARBON DIOXIDE 18 mmol/L (21-31); CHLORIDE 110 mmol/L (97-110); CREATININE 1.96 mg/dl (0.44-1.00); GLUCOSE 139 mg/dl (70-220); MAGNESIUM 1.6 mg/dl (1.7-2.5); PHOSPHORUS 4.4 mg/dl (2.5-4.9); POTASSIUM 3.5 mmol/L (3.5-5.1); SODIUM 144 mmol/L (135-144)
[2017-12-14] MEDS: INSULIN ASPART [NOVOLOG] 3 ML PEN SC ×4 (08:00→21:00)
[2017-12-14] MEDS: MAGNESIUM SULFATE 2 GM/50 ML 50 ML IVPB (09:27)
[2017-12-14] MEDS: FUROSEMIDE 20 MG INJ IV (09:35)
[2017-12-14] MEDS: FERROUS SULFATE (EC) 325 MG TAB PO (09:36)
[2017-12-14] MEDS: BISACODYL (EC) 5 MG TAB PO ×2 (09:36→21:24)
[2017-12-14] MEDS: AMLODIPINE 5 MG TAB PO ×2 (09:36→21:25)
[2017-12-14] MEDS: LETROZOLE 2.5 MG TAB PO (09:38)
[2017-12-14] MEDS: POLYETHYLENE GLYCOL 3350 119 GM POWDER PO ×2 (14:09→17:37)
[2017-12-14] MEDS: MAGNESIUM CITRATE 300 ML BTL PO (16:43)
[2017-12-14] MEDS: INSULIN GLARGINE [LANtus] 3 ML PEN SC (21:27)
[2017-12-15] MEDS: PANTOPRAZOLE (EC) 40 MG TAB PO ×2 (05:46→18:00)
[2017-12-15] MEDS: INSULIN ASPART [NOVOLOG] 3 ML PEN SC ×4 (08:00→21:00)
[2017-12-15 08:43] LABS: ADD MAN DIFF? NO
[2017-12-15 08:48] LABS: WHITE BLOOD COUNT 5.4 10^3/ul (4.8-10.8)
[2017-12-15 08:48] LABS: BASOPHILS % 0.4 % (0.0-2.0); EOSINOPHILS # 0.2 10^3/ul (0.0-0.5); EOSINOPHILS % 3.9 % (0.0-7.0); HEMATOCRIT 26.9 % (37.0-47.0); HEMOGLOBIN 8.8 g/dl (12.0-16.0); LYMPHOCYTES # 1.3 10^3/ul (0.8-2.9); LYMPHOCYTES % 23.9 % (15.0-51.0); MEAN CORPUSCULAR HEMOGLOBIN 28.6 pg (29.0-33.0); MEAN CORPUSCULAR HGB CONC 32.7 g/dl (32.0-37.0); MEAN CORPUSCULAR VOLUME 87.3 fl (82.0-101.0); MEAN PLATELET VOLUME 9.7 fl (7.4-10.4); MONOCYTE # 0.7 10^3/ul (0.3-0.9); MONOCYTES % 13.1 % (0.0-11.0); NEUTROPHIL # 3.1 10^3/ul (1.6-7.5); NEUTROPHILS % 56.7 % (39.0-77.0); PLATELET COUNT 355 10^3/UL (140-415); RED BLOOD COUNT 3.08 10^6/ul (4.20-5.40)
[2017-12-15 09:12] LABS: ANION GAP 16 (8-16); BLOOD UREA NITROGEN 24 mg/dl (7-20); CALCIUM 8.8 mg/dl (8.4-10.2); CARBON DIOXIDE 22 mmol/L (21-31); CHLORIDE 109 mmol/L (97-110); CREATININE 1.48 mg/dl (0.44-1.00); GLUCOSE 80 mg/dl (70-220); MAGNESIUM 1.9 mg/dl (1.7-2.5); PHOSPHORUS 3.3 mg/dl (2.5-4.9); SODIUM 144 mmol/L (135-144)
[2017-12-15] MEDS: FERROUS SULFATE (EC) 325 MG TAB PO (09:57)
[2017-12-15] MEDS: FUROSEMIDE 20 MG INJ IV (09:57)
[2017-12-15] MEDS: AMLODIPINE 5 MG TAB PO ×2 (09:58→22:17)
[2017-12-15] MEDS: POTASSIUM CHLORIDE (SR) 20 MEQ TAB PO (10:05)
[2017-12-15] MEDS: LETROZOLE 2.5 MG TAB PO (10:05)
[2017-12-15] MEDS ORDERED: ALBUMIN HUMAN 25% 200 ML (19:03)
[2017-12-15] MEDS ORDERED: ALBUMIN HUMAN 5% 500 ML (19:03)
[2017-12-15] MEDS ORDERED: PROPOFOL 40 ML (19:13)
[2017-12-15] MEDS ORDERED: LIDOCAINE 2% (SDV) 5 ML INJ (19:33)
[2017-12-15] MEDS ORDERED: CA CHLORIDE 10% 10 ML SYRINGE (19:33)
[2017-12-15] MEDS: INSULIN GLARGINE [LANtus] 3 ML PEN SC (21:00)
[2017-12-15] MEDS: ZOLPIDEM 5 MG TAB PO (22:16)
[2017-12-16] MEDS: ACCU-CHEK XX (02:00)
[2017-12-16] MEDS: PANTOPRAZOLE (EC) 40 MG TAB PO ×2 (05:10→17:45)
[2017-12-16] MEDS: INSULIN ASPART [NOVOLOG] 3 ML PEN SC ×4 (08:00→21:32)
[2017-12-16 08:03] LABS: HEMATOCRIT 25.4 % (37.0-47.0); HEMOGLOBIN 8.3 g/dl (12.0-16.0); MEAN CORPUSCULAR HEMOGLOBIN 28.4 pg (29.0-33.0); MEAN CORPUSCULAR HGB CONC 32.7 g/dl (32.0-37.0); MEAN PLATELET VOLUME 9.8 fl (7.4-10.4); PLATELET COUNT 300 10^3/UL (140-415); RED BLOOD COUNT 2.92 10^6/ul (4.20-5.40); RED CELL DISTRIBUTION WIDTH 15.1 % (11.5-14.5)
[2017-12-16 08:13] LABS: POSITIVE DIFF @See below
[2017-12-16 08:14] LABS: ADD MAN DIFF? YES
[2017-12-16 08:24] LABS: ALANINE AMINOTRANSFERASE 18 IU/L (13-69); ALBUMIN 4.3 g/dl (3.3-4.9); ALKALINE PHOSPHATASE 132 IU/L (42-121); ANION GAP 21 (8-16); ASPARTATE AMINO TRANSFERASE 27 IU/L (15-46); BILIRUBIN,INDIRECT 0.1 mg/dl (0-1.1); BILIRUBIN,TOTAL 0.1 mg/dl (0.2-1.3); BLOOD UREA NITROGEN 21 mg/dl (7-20); CALCIUM 9.6 mg/dl (8.4-10.2); CARBON DIOXIDE 21 mmol/L (21-31); CHLORIDE 109 mmol/L (97-110); CREATININE 1.45 mg/dl (0.44-1.00); GLUCOSE 99 mg/dl (70-220); POTASSIUM 3.7 mmol/L (3.5-5.1); SODIUM 147 mmol/L (135-144); TOTAL PROTEIN 7.6 g/dl (6.1-8.1)
[2017-12-16] MEDS: AMLODIPINE 5 MG TAB PO ×2 (08:37→21:36)
[2017-12-16] MEDS: FERROUS SULFATE (EC) 325 MG TAB PO (08:37)
[2017-12-16] MEDS: FUROSEMIDE 20 MG INJ IV (08:38)
[2017-12-16] MEDS: LETROZOLE 2.5 MG TAB PO (09:05)
[2017-12-16 09:06] LABS: BAND NEUTROPHILS #M 0.4 10^3/ul (0.0-0.6); BAND NEUTROPHILS % (M) 7 % (0-4); EOSINOPHILS % (M) 3 % (0-7); GIANT THROMBO% (M) 1 % (0-0); LYMPHOCYTES #M 1.9 10^3/ul (0.8-2.9); LYMPHOCYTES % (M) 32 % (15-51); MONOCYTE #M 0.2 10^3/ul (0.3-0.9); MONOCYTES % (M) 4 % (0-11); MYELOCYTES % (M) 1 % (0-0); PLATELET ESTIMATE NORMAL; POLYCHROMASIA 2+ (0-0); PROMYELOCYTES % (M) 1 % (0-0); SEG NEUT #M 3.1 10^3/ul (1.6-7.5); SEGMENTED NEUTROPHILS (M) % 52 % (39-77); SMUDGE%M 2 % (0-0)
[2017-12-16] MEDS: ACETAMINOPHEN 325 MG TAB PO (09:11)
[2017-12-16 13:16] LABS: PHOSPHORUS 3.4 mg/dl (2.5-4.9)
[2017-12-16 13:16] LABS: MAGNESIUM 1.8 mg/dl (1.7-2.5)
[2017-12-16] MEDS: POLYETHYLENE GLYCOL 17 GM PACKET PO (16:00)
[2017-12-16] MEDS ORDERED: ZOLPIDEM 5 MG TAB PO (21:00)
[2017-12-16] MEDS: INSULIN GLARGINE [LANtus] 3 ML PEN SC (21:31)
[2017-12-17] MEDS: ACCU-CHEK XX (02:00)
[2017-12-17] MEDS: PANTOPRAZOLE (EC) 40 MG TAB PO ×2 (06:00→17:39)
[2017-12-17 08:13] LABS: WHITE BLOOD COUNT 8.4 10^3/ul (4.8-10.8)
[2017-12-17 08:13] LABS: HEMATOCRIT 27.2 % (37.0-47.0); MEAN CORPUSCULAR HEMOGLOBIN 28.5 pg (29.0-33.0); MEAN CORPUSCULAR HGB CONC 33.1 g/dl (32.0-37.0); MEAN CORPUSCULAR VOLUME 86.1 fl (82.0-101.0); MEAN PLATELET VOLUME 9.3 fl (7.4-10.4); NUCLEATED RED BLOOD CELLS% 0.2 /100WBC (0.0-0.0); PLATELET COUNT 274 10^3/UL (140-415); RED BLOOD COUNT 3.16 10^6/ul (4.20-5.40)
[2017-12-17] MEDS: INSULIN ASPART [NOVOLOG] 3 ML PEN SC ×4 (08:15→20:33)
[2017-12-17 08:30] LABS: ANION GAP 18 (8-16); BLOOD UREA NITROGEN 17 mg/dl (7-20); CALCIUM 9.2 mg/dl (8.4-10.2); CARBON DIOXIDE 23 mmol/L (21-31); CHLORIDE 106 mmol/L (97-110); CREATININE 1.35 mg/dl (0.44-1.00); GLUCOSE 121 mg/dl (70-220); MAGNESIUM 1.5 mg/dl (1.7-2.5); PHOSPHORUS 2.7 mg/dl (2.5-4.9); POTASSIUM 3.1 mmol/L (3.5-5.1); SODIUM 144 mmol/L (135-144)
[2017-12-17 08:36] LABS: ADD MAN DIFF? YES; POSITIVE DIFF @See below
[2017-12-17] MEDS: FUROSEMIDE 20 MG INJ IV (09:10)
[2017-12-17] MEDS: FERROUS SULFATE (EC) 325 MG TAB PO (09:11)
[2017-12-17] MEDS: AMLODIPINE 5 MG TAB PO ×2 (09:11→20:39)
[2017-12-17] MEDS: POLYETHYLENE GLYCOL 17 GM PACKET PO (09:12)
[2017-12-17] MEDS: LETROZOLE 2.5 MG TAB PO (09:13)
[2017-12-17 09:46] LABS: ANISOCYTOSIS 2+ (0-0); BAND NEUTROPHILS #M 0.7 10^3/ul (0.0-0.6); BAND NEUTROPHILS % (M) 9 % (0-4); EOSINOPHILS % (M) 2 % (0-7); ERYTHROBLAST% (NRBC) (M) 4 % (0-0); LYMPHOCYTES #M 1.5 10^3/ul (0.8-2.9); LYMPHOCYTES % (M) 19 % (15-51); METAMYELOCYTES #M 0.2 10^3/ul (0.0-0.0); METAMYELOCYTES %M 3 % (0-0); MONOCYTE #M 0.6 10^3/ul (0.3-0.9); MONOCYTES % (M) 8 % (0-11); MYELOCYTES % (M) 1 % (0-0); PLATELET ESTIMATE NORMAL; POLYCHROMASIA 3+ (0-0); SEGMENTED NEUTROPHILS (M) % 59 % (39-77)
[2017-12-17] MEDS: MAGNESIUM SULFATE 2 GM/50 ML 50 ML IVPB (10:39)
[2017-12-17] MEDS: POTASSIUM CHLORIDE (SR) 20 MEQ TAB PO (10:39)
[2017-12-17] MEDS: ACETAMINOPHEN 325 MG TAB PO (11:13)
[2017-12-17] MEDS: LOPERAMIDE 2 MG CAP PO (13:51)
[2017-12-17] MEDS ORDERED: LOPERAMIDE 2 MG CAP PO (16:00)
[2017-12-17] MEDS: INSULIN GLARGINE [LANtus] 3 ML PEN SC (20:43)
[2017-12-18] MEDS: ACCU-CHEK XX (02:00)
[2017-12-18] MEDS: PANTOPRAZOLE (EC) 40 MG TAB PO ×2 (06:06→17:11)
[2017-12-18 06:41] LABS: ABNORMAL IP MESSAGE 1; HEMATOCRIT 25.1 % (37.0-47.0); HEMOGLOBIN 8.4 g/dl (12.0-16.0); MEAN CORPUSCULAR HEMOGLOBIN 28.8 pg (29.0-33.0); MEAN CORPUSCULAR HGB CONC 33.5 g/dl (32.0-37.0); MEAN PLATELET VOLUME 9.9 fl (7.4-10.4); NUCLEATED RED BLOOD CELLS% 0.7 /100WBC (0.0-0.0); PLATELET COUNT 261 10^3/UL (140-415); RED BLOOD COUNT 2.92 10^6/ul (4.20-5.40); RED CELL DISTRIBUTION WIDTH 15.2 % (11.5-14.5)
[2017-12-18 06:56] LABS: ADD MAN DIFF? YES; POSITIVE DIFF @See below
[2017-12-18 07:05] LABS: ANION GAP 15 (8-16); BLOOD UREA NITROGEN 16 mg/dl (7-20); CALCIUM 8.7 mg/dl (8.4-10.2); CARBON DIOXIDE 25 mmol/L (21-31); CHLORIDE 106 mmol/L (97-110); CREATININE 1.23 mg/dl (0.44-1.00); GLUCOSE 109 mg/dl (70-220); MAGNESIUM 1.6 mg/dl (1.7-2.5); POTASSIUM 3.2 mmol/L (3.5-5.1); SODIUM 143 mmol/L (135-144)
[2017-12-18] MEDS: INSULIN ASPART [NOVOLOG] 3 ML PEN SC ×4 (08:00→22:15)
[2017-12-18 08:08] LABS: BAND NEUTROPHILS #M 0.4 10^3/ul (0.0-0.6); BAND NEUTROPHILS % (M) 8 % (0-4); EOSINOPHILS % (M) 8 % (0-7); ERYTHROBLAST% (NRBC) (M) 3 % (0-0); GIANT THROMBO% (M) 1 % (0-0); LYMPHOCYTES % (M) 50 % (15-51); METAMYELOCYTES #M 0.1 10^3/ul (0.0-0.0); METAMYELOCYTES %M 2 % (0-0); MONOCYTE #M 0.7 10^3/ul (0.3-0.9); MONOCYTES % (M) 13 % (0-11); MYELOCYTES % (M) 1 % (0-0); PLATELET ESTIMATE NORMAL; PROMYELOCYTES % (M) 1 % (0-0); SEG NEUT #M 1.1 10^3/ul (1.6-7.5); SEGMENTED NEUTROPHILS (M) % 18 % (39-77); SMUDGE%M 14 % (0-0)
[2017-12-18] MEDS: FUROSEMIDE 20 MG INJ IV (09:23)
[2017-12-18] MEDS: FERROUS SULFATE (EC) 325 MG TAB PO (09:24)
[2017-12-18] MEDS: AMLODIPINE 5 MG TAB PO ×2 (09:25→20:37)
[2017-12-18] MEDS: LETROZOLE 2.5 MG TAB PO (09:26)
[2017-12-18] MEDS: MAGNESIUM SULFATE 2 GM/50 ML 50 ML IVPB (12:05)
[2017-12-18] MEDS: POTASSIUM CHLORIDE (SR) 20 MEQ TAB PO (12:05)
[2017-12-18] MEDS: VANCOMYCIN HCL 250 MG/5ML POSYG PO (17:10)
[2017-12-18] MEDS: ACETAMINOPHEN 325 MG TAB PO (17:11)
[2017-12-18] MEDS: INSULIN GLARGINE [LANtus] 3 ML PEN SC (22:15)
[2017-12-19] MEDS: VANCOMYCIN HCL 250 MG/5ML POSYG PO ×3 (00:15→12:10)
[2017-12-19] MEDS: ACETAMINOPHEN 325 MG TAB PO (01:02)
[2017-12-19] MEDS: SOD CHLORIDE 0.9% 500 ML IV (01:08)
[2017-12-19] MEDS: ACCU-CHEK XX (02:21)
[2017-12-19] MEDS: PANTOPRAZOLE (EC) 40 MG TAB PO (06:31)
[2017-12-19] MEDS: INSULIN ASPART [NOVOLOG] 3 ML PEN SC ×2 (08:00→12:14)
[2017-12-19] MEDS: FUROSEMIDE 20 MG INJ IV (08:49)
[2017-12-19] MEDS: AMLODIPINE 5 MG TAB PO (08:49)
[2017-12-19] MEDS: FERROUS SULFATE (EC) 325 MG TAB PO (08:50)
[2017-12-19] MEDS: LETROZOLE 2.5 MG TAB PO (08:52)
== END 2017-12-19 14:35 | disposition home or self-care (01) | DRG 252 ==
LOC: MS4 19:58 → E/R 17:35
PROC: 06H03DZ Insertion of Intraluminal Device into Inferior Vena Cava, Percutaneous Approach (ICD-10-PCS; principal; 2017-12-04 12:45)
PROC: 0T788DZ Dilation of Bilateral Ureters with Intraluminal Device, Via Natural or Artificial Opening Endoscopic (ICD-10-PCS; 2017-12-04 12:45)
PROC: 0DBK8ZX Excision of Ascending Colon, Via Natural or Artificial Opening Endoscopic, Diagnostic (ICD-10-PCS; 2017-12-04 12:45)
PROC: 0DBL8ZX Excision of Transverse Colon, Via Natural or Artificial Opening Endoscopic, Diagnostic (ICD-10-PCS; 2017-12-04 12:45)
PROC: 0DBN8ZX Excision of Sigmoid Colon, Via Natural or Artificial Opening Endoscopic, Diagnostic (ICD-10-PCS; 2017-12-04 12:45)
PROC: 0DBM8ZX Excision of Descending Colon, Via Natural or Artificial Opening Endoscopic, Diagnostic (ICD-10-PCS; 2017-12-04 12:45)
PROC: 30233N1 Transfusion of Nonautologous Red Blood Cells into Peripheral Vein, Percutaneous Approach (ICD-10-PCS; 2017-12-04 12:45)
PROC: 0DB68ZX Excision of Stomach, Via Natural or Artificial Opening Endoscopic, Diagnostic (ICD-10-PCS; 2017-12-04 12:45)
DX: I82.442 Acute embolism and thrombosis of left tibial vein (principal); I50.31 Acute diastolic (congestive) heart failure; C78.89 Secondary malignant neoplasm of other digestive organs; C78.6 Secondary malignant neoplasm of retroperitoneum and peritoneum; C79.51 Secondary malignant neoplasm of bone; N13.30 Unspecified hydronephrosis; N17.9 Acute kidney failure, unspecified; D68.52 Prothrombin gene mutation; I13.0 Hypertensive heart and chronic kidney disease with heart failure and stage 1 through stage 4 chronic kidney disease, or unspecified chronic kidney disease; K92.1 Melena; A04.72 Enterocolitis due to Clostridium difficile, not specified as recurrent; C78.5 Secondary malignant neoplasm of large intestine and rectum; N13.1 Hydronephrosis with ureteral stricture, not elsewhere classified; C50.919 Malignant neoplasm of unspecified site of unspecified female breast; I48.0 Paroxysmal atrial fibrillation; N18.9 Chronic kidney disease, unspecified; D63.8 Anemia in other chronic diseases classified elsewhere
CPT/HCPCS: 36415; 36430; 37248; 71045; 71250; 73030-RT; 74176; 74430; 76775; 76937; 78306; 78582; 80048; 80053; 80061; 81001; 81240; 82378; 82550; 82553; 82607; 82668; 82728; 82746; 82962; 83036; 83540; 83735; 83880; 83890; 84100; 84155; 84165; 84443; 84484; 85025; 85045; 85300; 85302; 85305; 85378; 85610; 85613; 85730; 86147; 86300; 86850; 86900; 86901; 86920; 87040; 87075; 87086; 88305; 88312; 88313; 93005; 93306; 93970; 96374; 99291-25; A9503

== ENCOUNTER 2018-01-05 01:33 | Emergency (ER) | payer OTHER ==
[2018-01-05 02:30] LABS: ADD MAN DIFF? NO
[2018-01-05 02:35] LABS: WHITE BLOOD COUNT 8.3 10^3/ul (4.8-10.8)
[2018-01-05 02:35] LABS: BASOPHILS % 0.2 % (0.0-2.0); EOSINOPHILS # 0.1 10^3/ul (0.0-0.5); EOSINOPHILS % 1.1 % (0.0-7.0); HEMATOCRIT 24.1 % (37.0-47.0); HEMOGLOBIN 7.8 g/dl (12.0-16.0); LYMPHOCYTES # 0.8 10^3/ul (0.8-2.9); LYMPHOCYTES % 9.2 % (15.0-51.0); MEAN CORPUSCULAR HEMOGLOBIN 28.5 pg (29.0-33.0); MEAN CORPUSCULAR HGB CONC 32.4 g/dl (32.0-37.0); MEAN PLATELET VOLUME 8.7 fl (7.4-10.4); MONOCYTE # 0.6 10^3/ul (0.3-0.9); MONOCYTES % 7.4 % (0.0-11.0); NEUTROPHIL # 6.8 10^3/ul (1.6-7.5); NEUTROPHILS % 81.4 % (39.0-77.0); PLATELET COUNT 398 10^3/UL (140-415); RED BLOOD COUNT 2.74 10^6/ul (4.20-5.40); RED CELL DISTRIBUTION WIDTH 16.4 % (11.5-14.5)
[2018-01-05 02:56] LABS: ALANINE AMINOTRANSFERASE 23 IU/L (13-69); ALBUMIN 3.7 g/dl (3.3-4.9); ALBUMIN/GLOBULIN RATIO 1.12; ALKALINE PHOSPHATASE 165 IU/L (42-121); ANION GAP 18 (8-16); ASPARTATE AMINO TRANSFERASE 30 IU/L (15-46); BLOOD UREA NITROGEN 53 mg/dl (7-20); CALCIUM 8.1 mg/dl (8.4-10.2); CARBON DIOXIDE 19 mmol/L (21-31); CHLORIDE 104 mmol/L (97-110); GLUCOSE 111 mg/dl (70-220); POTASSIUM 4.3 mmol/L (3.5-5.1); SODIUM 137 mmol/L (135-144)
[2018-01-05 03:08] LABS: TROPONIN-I < 0.012 ng/ml (0.00-0.12)
== END 2018-01-05 05:42 | disposition home or self-care (01) ==
LOC: E/R 05:42
DX: E11.649 Type 2 diabetes mellitus with hypoglycemia without coma (principal); R53.83 Other fatigue; Z79.84 Long term (current) use of oral hypoglycemic drugs
CPT/HCPCS: 36415; 71045; 80053; 82962; 84484; 85025; 93005; 99285-25

== ENCOUNTER 2018-01-29 11:59 | Inpatient (IN) | payer OTHER ==
[2018-01-29 13:33] LABS: ADD MAN DIFF? NO
[2018-01-29 13:35] LABS: ABNORMAL IP MESSAGE 1; BASOPHILS % 0.3 % (0.0-2.0); EOSINOPHILS # 0.2 10^3/ul (0.0-0.5); EOSINOPHILS % 2.4 % (0.0-7.0); HEMATOCRIT 20.1 % (37.0-47.0); LYMPHOCYTES % 29.9 % (15.0-51.0); MEAN CORPUSCULAR HEMOGLOBIN 29.7 pg (29.0-33.0); MEAN CORPUSCULAR HGB CONC 30.8 g/dl (32.0-37.0); MEAN CORPUSCULAR VOLUME 96.2 fl (82.0-101.0); MEAN PLATELET VOLUME 9.3 fl (7.4-10.4); MONOCYTE # 0.7 10^3/ul (0.3-0.9); MONOCYTES % 9.9 % (0.0-11.0); NEUTROPHIL # 3.7 10^3/ul (1.6-7.5); NEUTROPHILS % 55.7 % (39.0-77.0); NUCLEATED RED BLOOD CELLS # 0.1 10^3/ul (0.0-0.0); NUCLEATED RED BLOOD CELLS% 1.7 /100WBC (0.0-0.0); PLATELET COUNT 308 10^3/UL (140-415); RED BLOOD COUNT 2.09 10^6/ul (4.20-5.40); RED CELL DISTRIBUTION WIDTH 18.2 % (11.5-14.5)
[2018-01-29 13:35] LABS: WHITE BLOOD COUNT 6.6 10^3/ul (4.8-10.8)
[2018-01-29 13:37] LABS: ADD UMIC YES; UR ASCORBIC ACID NEGATIVE (NEGATIVE); UR BACTERIA FEW /HPF (NONE SEEN); UR BILIRUBIN (Dip) NEGATIVE (NEGATIVE); UR BLOOD (Dip) NEGATIVE (NEGATIVE); UR CLARITY CLEAR (CLEAR); UR COLOR STRAW (YELLOW); UR GLUCOSE (Dip) 1+ mg/dL (NEGATIVE); UR KETONES (Dip) NEGATIVE (NEGATIVE); UR LEUKOCYTE ESTERASE (Dip) TRACE Leu/ul (NEGATIVE); UR NITRITE (Dip) NEGATIVE (NEGATIVE); UR RBC 4 /HPF (0-5); UR SPECIFIC GRAVITY (Dip) 1.006 (1.003-1.030); UR SQUAMOUS EPITHELIAL CELL FEW /HPF (FEW); UR TOTAL PROTEIN (Dip) NEGATIVE (NEGATIVE); UR UROBILINOGEN (Dip) NEGATIVE (NEGATIVE); UR WBC 3 /HPF (0-5)
[2018-01-29 13:41] LABS: POSITIVE DIFF @See below
[2018-01-29 13:43] LABS: HEMOGLOBIN 6.2 g/dl (12.0-16.0)
[2018-01-29 13:44] LABS: PATH REVIEW? YES
[2018-01-29] MEDS: SOD CHLORIDE 0.9% 250 ML IV (13:54)
[2018-01-29 13:55] LABS: PROTIME 12.2 Sec (11.9-14.9)
[2018-01-29 13:56] LABS: PARTIAL THROMBOPLASTIN TIME 29.7 Sec (25.0-35.0)
[2018-01-29 14:00] LABS: ALANINE AMINOTRANSFERASE 23 IU/L (13-69); ALBUMIN 3.8 g/dl (3.3-4.9); ALBUMIN/GLOBULIN RATIO 1.11; ALKALINE PHOSPHATASE 192 IU/L (42-121); ANION GAP 17 (8-16); ASPARTATE AMINO TRANSFERASE 21 IU/L (15-46); BILIRUBIN,INDIRECT 0.1 mg/dl (0-1.1); BILIRUBIN,TOTAL 0.1 mg/dl (0.2-1.3); BLOOD UREA NITROGEN 39 mg/dl (7-20); CALCIUM 8.6 mg/dl (8.4-10.2); CARBON DIOXIDE 27 mmol/L (21-31); CHLORIDE 99 mmol/L (97-110); CREATININE 1.03 mg/dl (0.44-1.00); GLUCOSE 298 mg/dl (70-220); POTASSIUM 4.5 mmol/L (3.5-5.1); SODIUM 138 mmol/L (135-144); TOTAL PROTEIN 7.2 g/dl (6.1-8.1)
[2018-01-29] MEDS ORDERED: ONDANSETRON 4 MG TAB PO (15:00)
[2018-01-29] MEDS: SOD CHLORIDE 0.9% 500 ML IV (15:00)
[2018-01-29] MEDS ORDERED: NACL 0.9% 3 ML SYG IV (15:00)
[2018-01-29] MEDS ORDERED: ONDANSETRON 4 MG INJ IV ×2 (15:00)
[2018-01-29] MEDS ORDERED: HYDROCODONE/APAP (5/325) TAB PO (15:00)
[2018-01-29] MEDS ORDERED: ACETAMINOPHEN 325 MG TAB PO ×2 (15:00)
[2018-01-29] MEDS ORDERED: GLUCOSE GEL 15 GRAM TUBE BUCCAL (15:30)
[2018-01-29] MEDS ORDERED: GLUCOSE GEL 15 GRAM TUBE PO ×2 (15:30)
[2018-01-29] MEDS ORDERED: DEXTROSE 50% 50 ML SYRINGE IV ×2 (15:30)
[2018-01-29] MEDS ORDERED: GLUCAGON 1 MG INJ IM (15:30)
[2018-01-29] MEDS: INSULIN ASPART [NOVOLOG] 3 ML PEN SC ×3 (18:54→21:15)
[2018-01-30] MEDS: ACCU-CHEK XX (02:00)
[2018-01-30 05:55] LABS: ADD MAN DIFF? NO
[2018-01-30 06:00] LABS: ABNORMAL IP MESSAGE 1; BASOPHILS % 0.6 % (0.0-2.0); EOSINOPHILS # 0.2 10^3/ul (0.0-0.5); HEMATOCRIT 20.9 % (37.0-47.0); LYMPHOCYTES # 2.1 10^3/ul (0.8-2.9); LYMPHOCYTES % 37.8 % (15.0-51.0); MEAN CORPUSCULAR HEMOGLOBIN 29.6 pg (29.0-33.0); MEAN CORPUSCULAR HGB CONC 32.1 g/dl (32.0-37.0); MEAN CORPUSCULAR VOLUME 92.5 fl (82.0-101.0); MEAN PLATELET VOLUME 9.7 fl (7.4-10.4); MONOCYTE # 0.6 10^3/ul (0.3-0.9); MONOCYTES % 10.7 % (0.0-11.0); NEUTROPHIL # 2.5 10^3/ul (1.6-7.5); NEUTROPHILS % 46.4 % (39.0-77.0); NUCLEATED RED BLOOD CELLS # 0.1 10^3/ul (0.0-0.0); NUCLEATED RED BLOOD CELLS% 1.5 /100WBC (0.0-0.0); PLATELET COUNT 291 10^3/UL (140-415); RED BLOOD COUNT 2.26 10^6/ul (4.20-5.40); RED CELL DISTRIBUTION WIDTH 17.9 % (11.5-14.5)
[2018-01-30 06:00] LABS: WHITE BLOOD COUNT 5.4 10^3/ul (4.8-10.8)
[2018-01-30 06:07] LABS: HEMOGLOBIN 6.7 g/dl (12.0-16.0); POSITIVE DIFF @See below
[2018-01-30 06:25] LABS: ANION GAP 10 (8-16); BLOOD UREA NITROGEN 36 mg/dl (7-20); CALCIUM 8.5 mg/dl (8.4-10.2); CARBON DIOXIDE 31 mmol/L (21-31); CHLORIDE 103 mmol/L (97-110); CREATININE 0.99 mg/dl (0.44-1.00); GLUCOSE 172 mg/dl (70-220); MAGNESIUM 1.9 mg/dl (1.7-2.5); PHOSPHORUS 4.7 mg/dl (2.5-4.9); POTASSIUM 4.2 mmol/L (3.5-5.1); SODIUM 140 mmol/L (135-144)
[2018-01-30] MEDS: LETROZOLE 2.5 MG TAB PO (09:12)
[2018-01-30] MEDS: CHOLECALCIFEROL 1,000 UNIT TAB PO (09:12)
[2018-01-30] MEDS: INSULIN ASPART [NOVOLOG] 3 ML PEN SC ×4 (09:12→21:28)
[2018-01-30 11:24] LABS: IMMEDIATE SPIN CROSSMATCH 1 2
[2018-01-31] MEDS: ACCU-CHEK XX (02:16)
[2018-01-31 05:46] LABS: ADD MAN DIFF? NO
[2018-01-31 05:48] LABS: WHITE BLOOD COUNT 5.1 10^3/ul (4.8-10.8)
[2018-01-31 05:48] LABS: BASOPHILS % 0.4 % (0.0-2.0); EOSINOPHILS # 0.2 10^3/ul (0.0-0.5); EOSINOPHILS % 3.6 % (0.0-7.0); HEMATOCRIT 25.5 % (37.0-47.0); HEMOGLOBIN 8.1 g/dl (12.0-16.0); LYMPHOCYTES # 1.8 10^3/ul (0.8-2.9); LYMPHOCYTES % 35.2 % (15.0-51.0); MEAN CORPUSCULAR HEMOGLOBIN 29.2 pg (29.0-33.0); MEAN CORPUSCULAR HGB CONC 31.8 g/dl (32.0-37.0); MEAN CORPUSCULAR VOLUME 92.1 fl (82.0-101.0); MEAN PLATELET VOLUME 9.8 fl (7.4-10.4); MONOCYTE # 0.6 10^3/ul (0.3-0.9); MONOCYTES % 10.9 % (0.0-11.0); NEUTROPHIL # 2.5 10^3/ul (1.6-7.5); NEUTROPHILS % 48.3 % (39.0-77.0); NUCLEATED RED BLOOD CELLS # 0.1 10^3/ul (0.0-0.0); PLATELET COUNT 277 10^3/UL (140-415); RED BLOOD COUNT 2.77 10^6/ul (4.20-5.40); RED CELL DISTRIBUTION WIDTH 18.1 % (11.5-14.5)
[2018-01-31 06:32] LABS: ANION GAP 9 (8-16); BLOOD UREA NITROGEN 30 mg/dl (7-20); CALCIUM 8.8 mg/dl (8.4-10.2); CARBON DIOXIDE 30 mmol/L (21-31); CHLORIDE 107 mmol/L (97-110); CREATININE 0.91 mg/dl (0.44-1.00); GLUCOSE 172 mg/dl (70-220); POTASSIUM 4.2 mmol/L (3.5-5.1); SODIUM 142 mmol/L (135-144)
[2018-01-31] MEDS: INSULIN ASPART [NOVOLOG] 3 ML PEN SC ×4 (09:06→20:57)
[2018-01-31] MEDS: CHOLECALCIFEROL 1,000 UNIT TAB PO (09:07)
[2018-01-31] MEDS: LETROZOLE 2.5 MG TAB PO (09:08)
[2018-01-31] MEDS: ZOLEDRONIC ACID 3 MG in SOD CHLORIDE 0.9% 100 ML IVPB (09:40)
[2018-01-31 09:55] LABS: IRON 50 ug/dl (35-150)
[2018-01-31 10:04] LABS: % IRON SATURATION 20 % SAT (22-52); TOTAL IRON BINDING CAPACITY 254 ug/dl (241-421)
[2018-01-31 10:30] LABS: FERRITIN 63.1 ng/ml (11.1-264.0)
[2018-01-31 10:34] LABS: CARCINOEMBRYONIC ANTIGEN 18.3 ng/ml (0.0-5.0)
[2018-02-01] MEDS: ACCU-CHEK XX (02:36)
[2018-02-01] MEDS: INSULIN ASPART [NOVOLOG] 3 ML PEN SC ×2 (08:35→12:54)
[2018-02-01] MEDS: LETROZOLE 2.5 MG TAB PO (08:36)
[2018-02-01] MEDS: CHOLECALCIFEROL 1,000 UNIT TAB PO (08:36)
[2018-02-01 11:27] LABS: CA27.29 115 U/mL (<38)
[2018-02-01 11:30] LABS: PATH REVIEW CH
== END 2018-02-01 17:25 | disposition home or self-care (01) | DRG 544 ==
LOC: FTE 11:59 → MS1 14:32
DX: C79.51 Secondary malignant neoplasm of bone (principal); E11.65 Type 2 diabetes mellitus with hyperglycemia; E86.0 Dehydration; D63.0 Anemia in neoplastic disease; I10 Essential (primary) hypertension; M81.8 Other osteoporosis without current pathological fracture; D50.9 Iron deficiency anemia, unspecified; Z79.4 Long term (current) use of insulin; Z85.3 Personal history of malignant neoplasm of breast; Z90.12 Acquired absence of left breast and nipple; Z86.718 Personal history of other venous thrombosis and embolism
CPT/HCPCS: 36430; 71045; 76642; 80048; 80053; 81001; 82378; 82728; 82962; 83540; 83735; 84100; 85025; 85610; 85730; 86300; 86850; 86900; 86901; 86920; 93005; 99291-25; J3487

== ENCOUNTER → 2018-02-17 | Outpatient (CLI) | payer OTHER | END | disposition home or self-care (01) | LOC: NUC 10:12 | DX: Z85.3 Personal history of malignant neoplasm of breast (principal) | CPT/HCPCS: 78306; A9503 ==

== ENCOUNTER 2018-02-23 11:46 | Emergency (ER) | payer OTHER ==
[2018-02-23 13:41] LABS: ADD MAN DIFF? NO
[2018-02-23 13:43] LABS: WHITE BLOOD COUNT 5.3 10^3/ul (4.8-10.8)
[2018-02-23 13:43] LABS: BASOPHILS % 0.2 % (0.0-2.0); EOSINOPHILS # 0.2 10^3/ul (0.0-0.5); EOSINOPHILS % 3.2 % (0.0-7.0); HEMATOCRIT 23.9 % (37.0-47.0); HEMOGLOBIN 7.4 g/dl (12.0-16.0); LYMPHOCYTES # 1.5 10^3/ul (0.8-2.9); LYMPHOCYTES % 28.4 % (15.0-51.0); MEAN CORPUSCULAR HEMOGLOBIN 29.5 pg (29.0-33.0); MEAN CORPUSCULAR VOLUME 95.2 fl (82.0-101.0); MEAN PLATELET VOLUME 9.7 fl (7.4-10.4); MONOCYTE # 0.4 10^3/ul (0.3-0.9); MONOCYTES % 7.9 % (0.0-11.0); NEUTROPHIL # 3.2 10^3/ul (1.6-7.5); NEUTROPHILS % 59.4 % (39.0-77.0); PLATELET COUNT 322 10^3/UL (140-415); RED BLOOD COUNT 2.51 10^6/ul (4.20-5.40); RED CELL DISTRIBUTION WIDTH 15.9 % (11.5-14.5)
[2018-02-23 14:02] LABS: ALANINE AMINOTRANSFERASE 17 IU/L (13-69); ALBUMIN 3.8 g/dl (3.3-4.9); ALBUMIN/GLOBULIN RATIO 1.11; ALKALINE PHOSPHATASE 192 IU/L (42-121); ANION GAP 14 (8-16); ASPARTATE AMINO TRANSFERASE 21 IU/L (15-46); BILIRUBIN,INDIRECT 0.2 mg/dl (0-1.1); BILIRUBIN,TOTAL 0.2 mg/dl (0.2-1.3); BLOOD UREA NITROGEN 28 mg/dl (7-20); CARBON DIOXIDE 26 mmol/L (21-31); CHLORIDE 101 mmol/L (97-110); GLUCOSE 290 mg/dl (70-220); LIPASE 450 U/L (23-300); POTASSIUM 4.7 mmol/L (3.5-5.1); SODIUM 136 mmol/L (135-144); TOTAL PROTEIN 7.2 g/dl (6.1-8.1)
[2018-02-23 14:03] LABS: INR 0.91; PARTIAL THROMBOPLASTIN TIME 28.5 Sec (25.0-35.0); PROTIME 12.3 Sec (11.9-14.9)
[2018-02-23 14:13] LABS: TROPONIN-I < 0.010 ng/ml (0.000-0.120)
[2018-02-23] MEDS ORDERED: NACL 0.9% 3 ML SYG IV (15:00)
[2018-02-23] MEDS ORDERED: ACETAMINOPHEN 325 MG TAB PO (15:00)
[2018-02-23] MEDS ORDERED: HYDROCODONE/APAP (5/325) TAB PO (15:00)
[2018-02-23] MEDS ORDERED: GLUCOSE GEL 15 GRAM TUBE PO ×2 (15:30)
[2018-02-23] MEDS ORDERED: GLUCAGON 1 MG INJ IM (15:30)
[2018-02-23] MEDS ORDERED: GLUCOSE GEL 15 GRAM TUBE BUCCAL (15:30)
[2018-02-23] MEDS ORDERED: DEXTROSE 50% 50 ML SYRINGE IV ×2 (15:30)
[2018-02-23] MEDS ORDERED: INSULIN ASPART [NOVOLOG] 3 ML PEN SC (18:00)
[2018-02-24] MEDS ORDERED: ACCU-CHEK XX (02:00)
[2018-02-24] MEDS ORDERED: LETROZOLE 2.5 MG TAB PO (09:00)
[2018-02-24] MEDS ORDERED: FUROSEMIDE 20 MG TAB PO (09:00)
[2018-02-24] MEDS ORDERED: CHOLECALCIFEROL 1,000 UNIT TAB PO (09:00)
== END 2018-02-23 16:17 | disposition home or self-care (01) ==
LOC: E/R 11:46
DX: D64.9 Anemia, unspecified (principal); R60.0 Localized edema; C79.81 Secondary malignant neoplasm of breast; C79.51 Secondary malignant neoplasm of bone; E11.9 Type 2 diabetes mellitus without complications; R06.02 Shortness of breath; Z79.84 Long term (current) use of oral hypoglycemic drugs
CPT/HCPCS: 71045; 80053; 83690; 84484; 85025; 85610; 85730; 86850; 86900; 86901; 86920; 93005; 93970; 99285-25

== ENCOUNTER → 2018-03-02 | Outpatient (CLI) | payer OTHER ==
[2018-03-02] MEDS: IOHEXOL 300MG/ML 150 ML BTL (09:56)
[2018-03-02] MEDS: SOD CHLORIDE 0.9% 100 ML (09:56)
== END | disposition home or self-care (01) ==
LOC: C/S 09:04
DX: Z85.3 Personal history of malignant neoplasm of breast (principal)
CPT/HCPCS: 71260; 74177

== ENCOUNTER 2018-03-31 10:28 | Day surgery (SDC) | payer OTHER ==
[2018-03-31] MEDS ORDERED: IOHEXOL 300MG/ML 30 ML BTL (12:43)
[2018-03-31] MEDS ORDERED: LIDOCAINE 2% (SDV) 5 ML INJ (12:45)
[2018-03-31] MEDS ORDERED: PROPOFOL 20 ML (12:45)
[2018-03-31] MEDS ORDERED: MEPERIDINE 100 MG INJ (12:45)
[2018-03-31] MEDS ORDERED: METOCLOPRAMIDE 10 MG INJ (12:48)
[2018-03-31] MEDS ORDERED: ONDANSETRON 4 MG INJ (12:48)
[2018-03-31] MEDS ORDERED: CEFAZOLIN 1 GM INJ (13:34)
[2018-03-31] MEDS ORDERED: EPHEDrine 25 MG/5 ML SYG (13:34)
[2018-03-31] MEDS ORDERED: EPHEDrine SULFATE 50 MG/5 ML SYG IV (14:00)
[2018-03-31] MEDS ORDERED: METOCLOPRAMIDE 10 MG INJ IV (14:00)
[2018-03-31] MEDS ORDERED: hydrALAzine 20 MG INJ IV (14:00)
[2018-03-31] MEDS ORDERED: FENTAnyl 50 MCG/ML VIAL IV ×3 (14:00)
[2018-03-31] MEDS ORDERED: LABETALOL HCL 20MG INJ IV (14:00)
[2018-03-31] MEDS ORDERED: HYDROCODONE/APAP (5/325) TAB PO (14:00)
[2018-03-31] MEDS ORDERED: MEPERIDINE 25 MG INJ IV (14:00)
[2018-03-31] MEDS ORDERED: MIDAZOLAM 1 MG/ML 2 ML INJ IV (14:00)
[2018-03-31] MEDS ORDERED: ONDANSETRON 4 MG INJ IV (14:00)
[2018-03-31] MEDS ORDERED: HYDROmorphONE 1 MG/5 ML IV SYRINGE IV ×3 (14:00)
[2018-03-31] MEDS ORDERED: DIPHENHYDRAMINE 50 MG INJ IV (14:00)
[2018-03-31] MEDS ORDERED: OXYCODONE/ACETAMINOPHEN (5/325) TAB PO ×2 (14:00)
== END 2018-03-31 15:25 | disposition home or self-care (01) ==
LOC: SDS 10:28
DX: N13.30 Unspecified hydronephrosis (principal); I10 Essential (primary) hypertension; E11.9 Type 2 diabetes mellitus without complications
CPT/HCPCS: 52332; 74420; 82962; 87086

== ENCOUNTER 2018-05-21 13:00 | Emergency (ER) | payer OTHER ==
[2018-05-21 13:40] LABS: ABNORMAL IP MESSAGE 1; HEMATOCRIT 19.2 % (37.0-47.0); MEAN CORPUSCULAR HEMOGLOBIN 28.7 pg (29.0-33.0); MEAN CORPUSCULAR HGB CONC 32.3 g/dl (32.0-37.0); MEAN CORPUSCULAR VOLUME 88.9 fl (82.0-101.0); MEAN PLATELET VOLUME 9.3 fl (7.4-10.4); PLATELET COUNT 341 10^3/UL (140-415); RED BLOOD COUNT 2.16 10^6/ul (4.20-5.40); RED CELL DISTRIBUTION WIDTH 17.3 % (11.5-14.5)
[2018-05-21 13:40] LABS: WHITE BLOOD COUNT 3.8 10^3/ul (4.8-10.8)
[2018-05-21 13:43] LABS: POSITIVE DIFF @See below
[2018-05-21 13:45] LABS: ADD MAN DIFF? YES; HEMOGLOBIN 6.2 g/dl (12.0-16.0)
[2018-05-21 13:57] LABS: ANION GAP 12 (8-16); BLOOD UREA NITROGEN 37 mg/dl (7-20); CALCIUM 8.5 mg/dl (8.4-10.2); CARBON DIOXIDE 27 mmol/L (21-31); CHLORIDE 97 mmol/L (97-110); CREATININE 1.84 mg/dl (0.44-1.00); GLUCOSE 290 mg/dl (70-220); POTASSIUM 4.2 mmol/L (3.5-5.1); SODIUM 132 mmol/L (135-144)
[2018-05-21 14:10] LABS: ANISOCYTOSIS 1+ (0-0); EOSINOPHILS % (M) 2 % (0-7); LYMPHOCYTES #M 0.9 10^3/ul (0.8-2.9); LYMPHOCYTES % (M) 24 % (15-51); MICROCYTOSIS 1+ (0-0); MONOCYTE #M 0.1 10^3/ul (0.3-0.9); MONOCYTES % (M) 5 % (0-11); PLATELET ESTIMATE NORMAL; POLYCHROMASIA 3+ (0-0); SEGMENTED NEUTROPHILS (M) % 69 % (39-77); SMUDGE%M 7 % (0-0)
[2018-05-21 14:12] LABS: INR 0.91; PROTIME 12.3 Sec (11.9-14.9)
[2018-05-21] MEDS: SOD CHLORIDE 0.9% 250 ML IV* (20:45)
[2018-05-22 01:45] LABS: IMMEDIATE SPIN CROSSMATCH 1 3
== END 2018-05-22 05:30 | disposition home or self-care (01) ==
LOC: E/R 05-22 05:30
DX: D64.9 Anemia, unspecified (principal); N28.9 Disorder of kidney and ureter, unspecified; E11.65 Type 2 diabetes mellitus with hyperglycemia; I10 Essential (primary) hypertension; Z79.84 Long term (current) use of oral hypoglycemic drugs; Z85.3 Personal history of malignant neoplasm of breast
CPT/HCPCS: 36415; 36430; 80048; 85025; 85610; 85730; 86644; 86850; 86900; 86901; 86920; 86945; 99285-25

== ENCOUNTER 2018-07-05 11:17 | Inpatient (IN) | payer OTHER ==
[2018-07-05 14:08] LABS: ABNORMAL IP MESSAGE 1; HEMATOCRIT 16.7 % (37.0-47.0); MEAN CORPUSCULAR HEMOGLOBIN 30.9 pg (29.0-33.0); MEAN CORPUSCULAR HGB CONC 32.9 g/dl (32.0-37.0); MEAN CORPUSCULAR VOLUME 93.8 fl (82.0-101.0); MEAN PLATELET VOLUME 9.6 fl (7.4-10.4); PLATELET COUNT 238 10^3/UL (140-415); RED BLOOD COUNT 1.78 10^6/ul (4.20-5.40); RED CELL DISTRIBUTION WIDTH 22.2 % (11.5-14.5)
[2018-07-05 14:08] LABS: WHITE BLOOD COUNT 2.2 10^3/ul (4.8-10.8)
[2018-07-05 14:16] LABS: ADD MAN DIFF? YES; HEMOGLOBIN 5.5 g/dl (12.0-16.0); POSITIVE DIFF @See below
[2018-07-05 14:17] LABS: PATH REVIEW? YES
[2018-07-05 14:25] LABS: ALANINE AMINOTRANSFERASE 23 IU/L (13-69); ALBUMIN 3.2 g/dl (3.3-4.9); ALBUMIN/GLOBULIN RATIO 1.06; ALKALINE PHOSPHATASE 134 IU/L (42-121); ANION GAP 12 (5-13); ASPARTATE AMINO TRANSFERASE 34 IU/L (15-46); BILIRUBIN,INDIRECT 0.2 mg/dl (0-1.1); BILIRUBIN,TOTAL 0.2 mg/dl (0.2-1.3); BLOOD UREA NITROGEN 50 mg/dl (7-20); CALCIUM 8.5 mg/dl (8.4-10.2); CARBON DIOXIDE 26 mmol/L (21-31); CHLORIDE 92 mmol/L (97-110); CREATININE 2.07 mg/dl (0.44-1.00); Estimated GFR 24 mL/min (>60); POTASSIUM 3.6 mmol/L (3.5-5.1); SODIUM 130 mmol/L (135-144); TOTAL PROTEIN 6.2 g/dl (6.1-8.1)
[2018-07-05 14:28] LABS: INR 0.93; PROTIME 12.5 Sec (11.9-14.9)
[2018-07-05 14:29] LABS: PARTIAL THROMBOPLASTIN TIME 24.1 Sec (23.0-35.0)
[2018-07-05 14:36] LABS: GLUCOSE 413 mg/dl (70-220); TROPONIN-I < 0.012 ng/ml (0.000-0.120)
[2018-07-05 14:44] LABS: ANISOCYTOSIS 2+ (0-0); BAND NEUTROPHILS % (M) 2 % (0-4); EOSINOPHILS % (M) 2 % (0-7); ERYTHROBLAST% (NRBC) (M) 1 % (0-0); GIANT THROMBO% (M) 1 % (0-0); LYMPHOCYTES #M 0.8 10^3/ul (0.8-2.9); LYMPHOCYTES % (M) 38 % (15-51); MONOCYTES % (M) 2 % (0-11); PLATELET ESTIMATE NORMAL; POIKILOCYTOSIS 1+ (0-0); POLYCHROMASIA 3+ (0-0); SEG NEUT #M 1.2 10^3/ul (1.6-7.5); SEGMENTED NEUTROPHILS (M) % 56 % (39-77); SMUDGE%M 6 % (0-0)
[2018-07-05] MEDS ORDERED: DEXTROSE 50% 50 ML SYRINGE IV ×2 (15:30)
[2018-07-05] MEDS ORDERED: GLUCOSE GEL 15 GRAM TUBE BUCCAL (15:30)
[2018-07-05] MEDS ORDERED: GLUCAGON 1 MG INJ IM (15:30)
[2018-07-05] MEDS ORDERED: GLUCOSE GEL 15 GRAM TUBE PO ×2 (15:30)
[2018-07-05 15:42] LABS: IMMEDIATE SPIN CROSSMATCH 1 3
[2018-07-05] MEDS ORDERED: ALBUTEROL/IPRATROPIUM (NEB) 3 ML AMP HHN (16:00)
[2018-07-05] MEDS ORDERED: HYDROCODONE/APAP (5/325) TAB PO (16:00)
[2018-07-05] MEDS ORDERED: MAGNESIUM HYDROXIDE 30ML CUP PO (16:00)
[2018-07-05] MEDS ORDERED: DOCUSATE SODIUM 100 MG CAP PO (16:00)
[2018-07-05] MEDS ORDERED: NACL 0.9% 3 ML SYG IV (16:00)
[2018-07-05] MEDS ORDERED: NA PHOSPHATE/BIPHOS 133 ML ENEMA PR (16:00)
[2018-07-05] MEDS ORDERED: LORAZEPAM 2 MG INJ IV (16:00)
[2018-07-05] MEDS ORDERED: morphine 2 MG INJ IV (16:00)
[2018-07-05] MEDS ORDERED: ACETAMINOPHEN 325 MG TAB PO (16:00)
[2018-07-05] MEDS ORDERED: NITROGLYCERIN (SL) 0.4 MG TAB SL (16:00)
[2018-07-05] MEDS ORDERED: hydrALAzine 20 MG INJ IV (16:00)
[2018-07-05 16:27] LABS: FREE T4 (FREE THYROXINE) 1.21 ng/dl (0.78-2.44)
[2018-07-05] MEDS: INSULIN LISPRO 100 UNIT/ML VIAL SC (16:29)
[2018-07-05] MEDS: SOD CHLORIDE 0.9% 1,000 ML IV (18:23)
[2018-07-05] MEDS: INSULIN ASPART [NOVOLOG] 3 ML PEN SC (21:00)
[2018-07-05] MEDS: INSULIN GLARGINE [LANTus] (100 UNITS/ML) SYG SC (21:03)
[2018-07-06] MEDS: SOD CHLORIDE 0.9% 1,000 ML IV ×3 (01:32→22:15)
[2018-07-06] MEDS: ACCU-CHEK XX (02:00)
[2018-07-06] MEDS: ONDANSETRON 4 MG INJ IV (04:49)
[2018-07-06] MEDS: PANTOPRAZOLE 40 MG INJ IV (05:35)
[2018-07-06 05:49] LABS: HEMATOCRIT 25.6 % (37.0-47.0); HEMOGLOBIN 8.8 g/dl (12.0-16.0); MEAN CORPUSCULAR HEMOGLOBIN 30.3 pg (29.0-33.0); MEAN CORPUSCULAR HGB CONC 34.4 g/dl (32.0-37.0); MEAN CORPUSCULAR VOLUME 88.3 fl (82.0-101.0); MEAN PLATELET VOLUME 8.9 fl (7.4-10.4); PLATELET COUNT 205 10^3/UL (140-415); RED CELL DISTRIBUTION WIDTH 18.8 % (11.5-14.5)
[2018-07-06 05:49] LABS: WHITE BLOOD COUNT 2.2 10^3/ul (4.8-10.8)
[2018-07-06 06:04] LABS: ADD MAN DIFF? YES; POSITIVE DIFF @See below
[2018-07-06 06:21] LABS: CHOL/HDL RATIO 1.8 RATIO; HDL CHOLESTEROL 90 mg/dl (35-98); LDL CHOLESTEROL,CALCULATED 58 mg/dl; TRIGLYCERIDES 100 mg/dl (0-149)
[2018-07-06 06:21] LABS: CHOLESTEROL 168 mg/dl (100-200)
[2018-07-06 06:28] LABS: ANION GAP 6 (5-13); BLOOD UREA NITROGEN 39 mg/dl (7-20); CALCIUM 7.9 mg/dl (8.4-10.2); CARBON DIOXIDE 28 mmol/L (21-31); CHLORIDE 102 mmol/L (97-110); CREATININE 1.76 mg/dl (0.44-1.00); Estimated GFR 29 mL/min (>60); GLUCOSE 181 mg/dl (70-220); MAGNESIUM 2.6 mg/dl (1.7-2.5); PHOSPHORUS 3.2 mg/dl (2.5-4.9); POTASSIUM 3.4 mmol/L (3.5-5.1); SODIUM 136 mmol/L (135-144)
[2018-07-06 06:44] LABS: THYROID STIMULATING HORMONE 0.743 MIU/L (0.465-4.680)
[2018-07-06 07:05] LABS: ANISOCYTOSIS 2+ (0-0); BAND NEUTROPHILS % (M) 4 % (0-4); BASOPHILS % (M) 1 % (0-2); LYMPHOCYTES #M 0.9 10^3/ul (0.8-2.9); LYMPHOCYTES % (M) 42 % (15-51); MICROCYTOSIS 1+ (0-0); MONOCYTES % (M) 1 % (0-11); PLATELET ESTIMATE NORMAL; POLYCHROMASIA 2+ (0-0); REACTIVE LYMPHOCYTES% (M) 1 % (0-0); SEG NEUT #M 1.1 10^3/ul (1.6-7.5); SEGMENTED NEUTROPHILS (M) % 51 % (39-77); SMUDGE%M 2 % (0-0)
[2018-07-06] MEDS: INSULIN ASPART [NOVOLOG] 3 ML PEN SC ×4 (08:49→20:45)
[2018-07-06] MEDS: LETROZOLE 2.5 MG TAB PO (10:00)
[2018-07-06] MEDS: POTASSIUM CHLORIDE (SR) 20 MEQ TAB PO (11:24)
[2018-07-06 16:08] LABS: ADD UMIC NO; UR ASCORBIC ACID NEGATIVE (NEGATIVE); UR BILIRUBIN (Dip) NEGATIVE (NEGATIVE); UR BLOOD (Dip) NEGATIVE (NEGATIVE); UR CLARITY CLEAR (CLEAR); UR COLOR STRAW (YELLOW); UR GLUCOSE (Dip) 2+ mg/dL (NEGATIVE); UR KETONES (Dip) NEGATIVE (NEGATIVE); UR LEUKOCYTE ESTERASE (Dip) NEGATIVE Leu/ul (NEGATIVE); UR NITRITE (Dip) NEGATIVE (NEGATIVE); UR SPECIFIC GRAVITY (Dip) 1.009 (1.003-1.030); UR TOTAL PROTEIN (Dip) NEGATIVE (NEGATIVE); UR UROBILINOGEN (Dip) NEGATIVE (NEGATIVE)
[2018-07-06 16:20] LABS: CREATININE,URINE RANDOM 41.42 mg/dl (20-320)
[2018-07-06 16:20] LABS: SODIUM,URINE RANDOM 52 mmol/L (30-90)
[2018-07-06] MEDS: INSULIN GLARGINE [LANTus] (100 UNITS/ML) SYG SC (20:44)
[2018-07-07] MEDS: ACCU-CHEK XX (01:19)
[2018-07-07 05:34] LABS: ADD MAN DIFF? NO
[2018-07-07] MEDS: PANTOPRAZOLE 40 MG INJ IV (05:37)
[2018-07-07 05:38] LABS: WHITE BLOOD COUNT 2.4 10^3/ul (4.8-10.8)
[2018-07-07 05:38] LABS: ABNORMAL IP MESSAGE 1; BASOPHILS % 0.8 % (0.0-2.0); EOSINOPHILS % 1.7 % (0.0-7.0); HEMATOCRIT 26.1 % (37.0-47.0); HEMOGLOBIN 8.7 g/dl (12.0-16.0); LYMPHOCYTES # 1.2 10^3/ul (0.8-2.9); LYMPHOCYTES % 49.6 % (15.0-51.0); MEAN CORPUSCULAR HEMOGLOBIN 29.9 pg (29.0-33.0); MEAN CORPUSCULAR HGB CONC 33.3 g/dl (32.0-37.0); MEAN CORPUSCULAR VOLUME 89.7 fl (82.0-101.0); MEAN PLATELET VOLUME 9.8 fl (7.4-10.4); MONOCYTE # 0.2 10^3/ul (0.3-0.9); MONOCYTES % 7.1 % (0.0-11.0); NUCLEATED RED BLOOD CELLS% 0.8 /100WBC (0.0-0.0); PLATELET COUNT 207 10^3/UL (140-415); RED BLOOD COUNT 2.91 10^6/ul (4.20-5.40); RED CELL DISTRIBUTION WIDTH 20.1 % (11.5-14.5)
[2018-07-07 05:44] LABS: POSITIVE DIFF @See below
[2018-07-07 05:57] LABS: ANION GAP 5 (5-13); BLOOD UREA NITROGEN 26 mg/dl (7-20); CARBON DIOXIDE 27 mmol/L (21-31); CHLORIDE 108 mmol/L (97-110); CREATININE 1.52 mg/dl (0.44-1.00); Estimated GFR 34 mL/min (>60); GLUCOSE 107 mg/dl (70-220); POTASSIUM 3.7 mmol/L (3.5-5.1); SODIUM 140 mmol/L (135-144)
[2018-07-07] MEDS: INSULIN ASPART [NOVOLOG] 3 ML PEN SC ×2 (08:00→12:30)
[2018-07-07] MEDS: LETROZOLE 2.5 MG TAB PO (08:55)
[2018-07-07] MEDS: SOD CHLORIDE 0.9% 1,000 ML IV (08:56)
[2018-07-07 15:21] LABS: CREATININE, RANDOM URINE 42 mg/dL (20-275); MICROALBUMIN 2.1 mg/dL; MICROALBUMIN/CREATININE RATIO 50 (<30)
== END 2018-07-07 16:10 | disposition home or self-care (01) | DRG 375 ==
LOC: E/R 11:17 → PP2 16:07
PROC: 30233N1 Transfusion of Nonautologous Red Blood Cells into Peripheral Vein, Percutaneous Approach (ICD-10-PCS; principal; 2018-07-05)
DX: C78.89 Secondary malignant neoplasm of other digestive organs (principal); C79.51 Secondary malignant neoplasm of bone; N17.9 Acute kidney failure, unspecified; E87.1 Hypo-osmolality and hyponatremia; N13.1 Hydronephrosis with ureteral stricture, not elsewhere classified; D64.81 Anemia due to antineoplastic chemotherapy; C50.919 Malignant neoplasm of unspecified site of unspecified female breast; D63.0 Anemia in neoplastic disease; E11.65 Type 2 diabetes mellitus with hyperglycemia; Z86.718 Personal history of other venous thrombosis and embolism; D72.819 Decreased white blood cell count, unspecified
CPT/HCPCS: 36415; 36430; 76775; 80048; 80053; 80061; 81003; 82043; 82962; 83036; 83735; 84100; 84155; 84300; 84439; 84443; 84484; 85025; 85610; 85730; 86850; 86900; 86901; 86920; 87081; 87086; 93005; 97161; 97166; 99285-25

== ENCOUNTER 2018-08-23 10:14 | Day surgery (SDC) | payer OTHER ==
[~2018-08-23 10:14] MED LIST: CEFAZOLIN 2 GM/50 ML (PMX) 50 ML IVPB; EPHEDrine SULFATE 50 MG/5 ML SYG
[2018-08-23] MEDS ORDERED: FENTAnyl 50 MCG/ML VIAL (12:37)
[2018-08-23] MEDS ORDERED: MIDAZOLAM 1 MG/ML 2 ML INJ (12:37)
[2018-08-23] MEDS ORDERED: PROPOFOL 20 ML (12:37)
[2018-08-23] MEDS ORDERED: CEFAZOLIN 1 GM INJ (12:37)
[2018-08-23] MEDS ORDERED: HYDROmorphONE 1 MG/5 ML IV SYRINGE IV ×3 (13:00)
[2018-08-23] MEDS ORDERED: EPHEDrine SULFATE 50 MG/5 ML SYG IV (13:00)
[2018-08-23] MEDS ORDERED: DIPHENHYDRAMINE 50 MG INJ IV (13:00)
[2018-08-23] MEDS ORDERED: MEPERIDINE 25 MG INJ IV (13:00)
[2018-08-23] MEDS ORDERED: FENTAnyl 50 MCG/ML VIAL IV ×3 (13:00)
[2018-08-23] MEDS ORDERED: OXYCODONE/ACETAMINOPHEN (5/325) TAB PO (13:00)
[2018-08-23] MEDS ORDERED: LABETALOL HCL 20MG INJ IV (13:00)
[2018-08-23] MEDS ORDERED: METOCLOPRAMIDE 10 MG INJ IV (13:00)
[2018-08-23] MEDS ORDERED: ONDANSETRON 4 MG INJ IV (13:00)
[2018-08-23] MEDS ORDERED: hydrALAzine 20 MG INJ IV (13:00)
[2018-08-23] MEDS ORDERED: METOCLOPRAMIDE 10 MG INJ (13:18)
[2018-08-23] MEDS ORDERED: ONDANSETRON 4 MG INJ (13:18)
[2018-08-23] MEDS ORDERED: DEXAMETHASONE 4 MG/ML 1 ML INJ (13:19)
[2018-08-23] MEDS ORDERED: KETOROLAC 30 MG INJ (13:19)
[2018-08-23] MEDS ORDERED: HYDROCODONE/APAP (5/325) TAB PO (14:00)
== END 2018-08-23 14:58 | disposition home or self-care (01) ==
LOC: SDS 10:14
DX: N13.30 Unspecified hydronephrosis (principal); E11.9 Type 2 diabetes mellitus without complications
CPT/HCPCS: 52332; 74430; 82962; 87086

== ENCOUNTER 2019-02-14 10:00 | Day surgery (SDC) | payer OTHER ==
[2019-02-14] MEDS ORDERED: PROPOFOL 20 ML (11:21)
[2019-02-14] MEDS ORDERED: CEFAZOLIN 1 GM INJ (11:21)
[2019-02-14] MEDS ORDERED: FENTAnyl 50 MCG/ML VIAL (11:21)
[2019-02-14] MEDS ORDERED: LIDOCAINE 2% (SDV) 5 ML INJ (11:21)
[2019-02-14] MEDS ORDERED: DESFLURANE 15 MIN (12:30)
[2019-02-14] MEDS: CEFAZOLIN 2 GM/50 ML (PMX) 50 ML IVPB (12:40)
[2019-02-14] MEDS ORDERED: IOHEXOL 300MG/ML 30 ML BTL (12:44)
[2019-02-14] MEDS ORDERED: FAMOTIDINE 20 MG INJ (12:45)
[2019-02-14] MEDS ORDERED: DEXAMETHASONE 4 MG/ML 5 ML INJ (12:45)
[2019-02-14] MEDS ORDERED: METOCLOPRAMIDE 10 MG INJ (12:45)
[2019-02-14] MEDS ORDERED: ONDANSETRON 4 MG INJ (12:45)
[2019-02-14] MEDS: SOD CHLORIDE 0.9% 1,000 ML IV (13:26)
[2019-02-14] MEDS ORDERED: OXYCODONE/ACETAMINOPHEN (5/325) TAB PO ×2 (13:30)
[2019-02-14] MEDS ORDERED: MEPERIDINE 25 MG INJ IV (13:30)
[2019-02-14] MEDS ORDERED: ONDANSETRON 4 MG INJ IV (13:30)
[2019-02-14] MEDS ORDERED: FENTAnyl 50 MCG/ML VIAL IV ×3 (13:30)
[2019-02-14] MEDS ORDERED: HYDROCODONE/APAP (5/325) TAB PO (14:00)
[2019-02-14] MEDS: LABETALOL HCL 20MG INJ IV (14:03)
== END 2019-02-14 15:30 | disposition home or self-care (01) ==
LOC: SDS 10:00
DX: N13.1 Hydronephrosis with ureteral stricture, not elsewhere classified (principal); I10 Essential (primary) hypertension; E11.9 Type 2 diabetes mellitus without complications
CPT/HCPCS: 52332; 74430; 82962; 87086